=== PATIENT | female | born 1970 | race Caucasian/White ===

== ENCOUNTER → 2020-06-20 12:33 | Outpatient (BNVA) | payer SELFPAY | PROVIDERS: Family Provider Nurse Practitioner; PCP Nurse Practitioner; Visit Provider Nurse Practitioner Family | DX: I10 Essential (primary) hypertension (principal); N93.9 Abnormal uterine and vaginal bleeding, unspecified; R22.32 Localized swelling, mass and lump, left upper limb | CPT/HCPCS: 80053; 80061; 82607; 83001; 84439; 84443; 84481; 85025 ==

== ENCOUNTER → 2020-06-28 10:37 | Outpatient (BNVA) | payer SELFPAY | PROVIDERS: Family Provider Nurse Practitioner; PCP Nurse Practitioner; Visit Provider Nurse Practitioner Family | DX: E03.9 Hypothyroidism, unspecified (principal) | CPT/HCPCS: 86376 ==

== ENCOUNTER → 2020-07-17 09:49 | Outpatient (BNVA) | payer SELFPAY | PROVIDERS: PCP Nurse Practitioner Family; Visit Provider Obstetrics & Gynecology | DX: N91.2 Amenorrhea, unspecified (principal) | CPT/HCPCS: 82670; 83001; 84144 ==

== ENCOUNTER 2020-07-18 07:36 | Outpatient (CLI) | payer SELFPAY ==
--- NOTE | 2020-07-18 08:00 | US_ITS ---
WS: [id number] ULTRASOUND SOFT TISSUES medial LEFT upper arm. HISTORY: R22.32 - Localized swelling, mass and lump, left upper limb COMPARISON: None available. TECHNIQUE: 2-D and color Doppler imaging is submitted. Ultrasound is performed in the area of the swelling. There is no underlying mass identified by ultras ound. RIGHT and LEFT arms are imaged and very similar. No edema or evidence for muscle or tendon inju ry. US/US soft tissue/extremity [id number] IMPRESSION: Negative soft tissue ultrasound LEFT upper arm.
== END 2020-07-18 07:37 | disposition home or self-care (01) ==
PROVIDERS: PCP Nurse Practitioner Family; Visit Provider Nurse Practitioner Family
DX: R22.32 Localized swelling, mass and lump, left upper limb (principal)
CPT/HCPCS: 76882

== ENCOUNTER → 2020-07-27 13:06 | Outpatient (BNVA) | payer SELFPAY | PROVIDERS: PCP Nurse Practitioner Family; Visit Provider Obstetrics & Gynecology | DX: N91.2 Amenorrhea, unspecified (principal) | CPT/HCPCS: 76830 ==

== ENCOUNTER → 2020-07-31 15:47 | Outpatient (BNVA) | payer SELFPAY | PROVIDERS: PCP Nurse Practitioner Family; Visit Provider Obstetrics & Gynecology | DX: Z12.4 Encounter for screening for malignant neoplasm of cervix (principal) | CPT/HCPCS: 88175 ==

== ENCOUNTER 2020-08-03 08:06 | Outpatient (CLI) | payer SELFPAY ==
--- NOTE | 2020-08-03 08:30 | MM_ITS ---
WS: [id number] BILATERAL DIGITAL SCREENING MAMMOGRAPHY WITH CAD CLINICAL INFORMATION: Z12.31 - Encounter for screening mammogram for malignant neoplasm of breast HISTORY: Screening mammogram. Bilateral breast soreness COMPARISON: None. TECHNIQUE: Bilateral CC and MLO views. FINDINGS: Scattered fibroglandular densities bilaterally. Punctate and lucent centered calcifications. Intramam stuart lymph node outer right breast. No suspicious focal mass, asymmetry, calcifications, or it solutions architect ural distortion. No evidence of malignancy. MM/[place] [id number] IMPRESSION: BI-RADS: 2-Benign FOLLOW UP: 1 Year Follow-up Recommend return to annual screening mammography.
== END 2020-08-03 08:07 | disposition home or self-care (01) ==
LOC: RADSHAW 08:08
PROVIDERS: PCP Nurse Practitioner Family; Visit Provider Nurse Practitioner Family
DX: Z12.31 Encounter for screening mammogram for malignant neoplasm of breast (principal)
CPT/HCPCS: 77067

== ENCOUNTER → 2020-08-08 07:59 | Outpatient (BNVA) | payer SELFPAY | PROVIDERS: PCP Nurse Practitioner Family; Visit Provider Obstetrics & Gynecology | DX: Z01.818 Encounter for other preprocedural examination (principal); Z20.822 Contact with and (suspected) exposure to COVID-19 | CPT/HCPCS: 87635 ==

== ENCOUNTER 2020-08-10 05:42 | Day surgery (SDC) | payer SELFPAY ==
[2020-08-09 12:55] VITALS: BMI 37.5
[2020-08-10] VITALS (8 sets, daily range): BP systolic 122–155; BP diastolic 72–86; PULSE 42–79; RESP 13–18; TEMP 36.5–36.6; O2SAT 95–99
[2020-08-10] MEDS: sodium chloride 0.9% 1,000 ML 30 ML IV (06:15)
--- NOTE | 2020-08-10 06:55 | W.PM.OPSUD ---
Surgery/Procedure H&P Update DATE OF PROCEDURE: August 10, 2020 DATE H&P PERFORMED: 07/31/20 H&P UPDATE INFORMATION: I have reviewed H&P completed within last 30 days, I have examined patient prior to procedure, No changes to prior documentation and H&P is in [facility] EMR on date indicated PREOP DIAGNOSIS: Thickened endometrium-possible polyp PLANNED PROCEDURE: Operation Date: 08/10/20 07:00 Proposed Procedures p Hysteroscopy 52843 N93.9(Not Applicable) - Bhargav Rajan MD s Dilation And Curettage w/Myosure (D&C)(Not Applicable) - Bhargav Rajan MD
--- NOTE | 2020-08-10 06:56 | ANES.PREANE2 ---
Pre-Anesthetic Assessment Pre-Anesthetic Assessment: Height/Weight: Height 1.63 m Weight 99.337 kg Temp Pulse Resp BP Pulse Ox 98 F 52 L 18 155/77 97 08/10/20 05:55 08/10/20 05:55 08/10/20 05:55 08/10/20 05:55 08/10/20 05:55 Preop Diagnosis: Thickened endometrium-possible polyp Proposed Procedure: Operation Date: 08/10/20 07:00 Proposed Procedures p Hysteroscopy 48762 N93.9(Not Applicable) - Bhargav Rajan MD s Dilation And Curettage w/Myosure (D&C)(Not Applicable) - Bhargav Rajan MD Was Beta Jeff taken within 24 hours: N/A Was Clonidine taken within 24 hours: N/A Last intake: Intake Last Liquid Date 08/09/20 Last Solid Date 08/09/20 Social: Social History: Tobacco and No alcohol Exam: Pre-Anes Outpt Exam: alert, oriented x 3 and regular rate & rhythm Airway: Submandibular: WNL Cervical ROM: WNL MP: 2 Dentition: Chipped Additional comments: Poor dentition, missing several Pulmonary: Pulmonary: COPD CV/HEM: CV/HEM: Arrythmia and HTN GI: GI: GERD Metabolic: Metabolic: Morbid obesity and Thyroid Anesthetic Plan: ASA status: 3 Anesthesia: General Risk of > 500 ml blood loss (7ml/kg in children): No PFSH Anesthesia PFSH: Medical History Hypertension Diagnosed in her late 30s and is currently on medication managed by her primary care provider. She has seen Dr. Nicholas in the past and is being scheduled to see her again because of possible bradycardia No pertinent past medical history Denies diabetes, asthma, seizures, DVT/PE PCP: KARLOS Esquivel Surgical History History of delivery x2 ----->1996 History of cholecystectomy 1993--laparoscopic procedure Status post tubal ligation 1996 at time of second Family History Mother Heart disease Hypertension Hyperlipidemia Father Heart disease Hypertension Hyperlipidemia Sister Heart disease Thyroid condition Hypertension Hyperlipidemia Brother Heart disease Hypertension Hyperlipidemia Denies family history of Colon cancer Ovarian cancer Diabetes Breast cancer Uterine cancer Stroke Social History Smoking and tobacco status: current every day smoker cigarettes Packs smoked per day: 0.5 Years cigarettes smoked: 16 Alcohol intake: never Household members: spouse Housing: House Marital status: Data Anesthesia Cardiac Studies: No Data to Display
[2020-08-10] MEDS: silver nitrate applicator 1 EACH TOPICAL (07:54)
--- NOTE | 2020-08-10 08:00 | PM.OP ---
Operative Report Date of procedure: August 10, 2020 OPERATIVE REPORT Date of surgery: 08/10/2020 Date of dictation: 08/10/2020 Preoperative diagnosis: Thickened endometrium-postmenopausal Postoperative diagnosis/findings: Same, 6-8-week size anteverted uterus, grade 1-2 uterine prolapse, grade 1-2 cystocele, minimal rectocele. On hysteroscopy endocervical canal was normal, endometrial cavity showed 3 large endometrial polyp 1 arising from the fundus, a second from the posterior uterine wall and a third from the right lateral uterine wall all ranging in size between 0.5 to 1 cm. Fluid deficit was 150 mL Procedure done: Hysteroscopy, D&C, polypectomy with MyoSure Specimens removed/disposition of specimens: Endometrial polyp and endometrial curettings sent together to pathology Surgeon: Dr. Bhargav Medina Service Planner: barbara Anesthesia: Laryngeal mask anesthesia Estimated blood loss: Less than 25 ml Intravenous fluids: 800 mL of LR Urine output: 20 mL of clear urine via red rubber catheter at the start of procedure. Medications: As per anesthesia records Complications: None, patient was left to recover in a stable condition PROCEDURE: After consent was obtained patient was taken to the operating room where she is placed under laryngeal mask anesthesia without any difficulty. She was placed supine on the table in lithotomy position. Care was taken to ensure that her legs were well positioned to avoid pressure points. She was then prepped and draped in the usual sterile fashion. -Exam under anesthesia was done at this time which showed findings noted above. The weighted speculum and lateral vaginal wall retractors were placed in the vagina and the cervix was visualized. The cervix appeared normal. The cervix was dilated to a 16 Hickman dilator. This allowed placement of MYOSURE hysteroscope into the uterine cavity without any difficulty. Once the hysteroscope was placed in the uterine cavity, the endocervical canal was visualized and appeared normal .the uterine cavity was visualized and findings noted above--3 endometrial polyps. -The light MYOSURE device was placed and all 3 polyps were morcellated and removed. Once this was done the ostia were visualized and appeared normal. The hysteroscope was removed and sharp curettage was performed and endometrial curettings obtained was sent to pathology along with tissue obtained from the MyoSure procedure. No active bleeding was noted from the cervix. Tenaculum was removed and silver nitrate was used to obtain hemostasis. Good hemostasis was achieved. All instruments were removed from the vagina. Patient was cleaned well and anesthesia was reversed without any difficulty. She was taken to the recovery in a stable condition. FOLLOW UP: Follow-up in 2 weeks and 6 weeks with surgeon MEDICATION ON DISCHARGE: Colace 100 mg by mouth every 12 hours when necessary constipation, 30 tablets, no refills Ibuprofen 800 mg by mouth every 8 hours when necessary pain, 60 tablets, no refills. [place] 5/325 mg 1 tablet by mouth every 6 hours when necessary pain,10 tablets, no refills Continue other home medication DISPOSITION: Home in a stable condition This documentation was created by [employer] business administration instructor software (known for inherent business administration instructor error). Every effort was made to assure accuracy of business administration instructor. Any obvious errors or omissions should be clarified with the author of the document. Pre-op Diagnosis: Thickened endometrium-possible polyp
--- NOTE | 2020-08-10 15:01 | ANE.PACU2 ---
Inpatient post-anesthesia follow up: Airway intact: Yes Vital signs: Temperature 97.7 F Pulse Rate 42 Respiratory Rate 18 Blood Pressure 138/73 Pulse Oximetry 99 Oxygen Delivery Me thod Room Air Oxygen Flow Rate 2 Fraction of Inspir ed Oxygen Hydration adequate: Yes Nausea and vomiting: No Pain level: 1 Mental status: Baseline
== END 2020-08-10 09:30 | disposition home or self-care (01) ==
PROVIDERS: PCP Nurse Practitioner Family; Visit Provider Obstetrics & Gynecology
PROC: 0UDB8ZZ Extraction of Endometrium, Via Natural or Artificial Opening Endoscopic (ICD-10-PCS; CPT 58558; principal; 2020-08-10 07:00)
PROC: (CPT 58120; 2020-08-10 07:00)
DX: N81.2 Incomplete uterovaginal prolapse (principal); N81.6 Rectocele; R93.89 Abnormal findings on diagnostic imaging of other specified body structures; J44.9 Chronic obstructive pulmonary disease, unspecified; I10 Essential (primary) hypertension; K21.9 Gastro-esophageal reflux disease without esophagitis; E66.01 Morbid (severe) obesity due to excess calories; Z68.37 Body mass index [BMI] 37.0-37.9, adult; F17.210 Nicotine dependence, cigarettes, uncomplicated
CPT/HCPCS: 58558; 36415; 86850; 86900; 88305; J1170; J2405; J2704; J3010; J7030

== ENCOUNTER 2020-09-25 12:00 | Outpatient (CLI) | payer MEDICAID, SELFPAY | END 2020-09-25 12:01 | disposition home or self-care (01) | LOC: SLEEP 09-26 11:42 | PROVIDERS: PCP Nurse Practitioner Family; Visit Provider Internal Medicine Cardiovascular Disease | DX: G47.33 Obstructive sleep apnea (adult) (pediatric) (principal) | CPT/HCPCS: G0399 ==

== ENCOUNTER 2020-10-27 20:22 | Emergency (ER) | payer MEDICAID, SELFPAY ==
[2020-10-27 20:51] VITALS: BP 152/67; PULSE 56; RESP 18; TEMP 36.9; O2SAT 96; BMI 36.2
[2020-10-27 20:57] VITALS: PULSE 62
--- NOTE | 2020-10-27 21:11 | W.ED.EXTPRO ---
HPI - Extremity Problem General: Chief complaint: Extremity Problem,Nontraumatic Stated complaint: left arm and shoulder pain Time Seen by Provider: 10/27/20 20:58 History of Present Illness: HPI Narrative: Patient states left shoulder arm is been hurting for a couple 3 days. Hurts with movement. Pain radiates down to her fingertips arm is sore. Hurts left shoulder area. She has had this problem before. MD Complaint: extremity pain Onset (ago): day(s) Pain Consistency: intermittent Location: left and upper extremity Severity scale (1-10): 4 Quality: aching Radiation: distal Relieving factors: immobilization Exacerbating factors: range of motion Associated symptoms: Reports no associated symptoms; Deny chest pain, fever(s) or rash Review of Systems Const: Denies: fever(s), chills or body aches Eyes: Denies: change in vision or blurry vision ENMT: Denies: throat pain or nasal congestion Card: Denies: chest pain or dyspnea on exertion Resp: Denies: dyspnea, productive cough or non-productive cough GI: Denies: abdominal pain, nausea or vomiting Musc: Reports: extremity pain (Neck hurts some to. With range of motion) Skin/Breast: Denies: rash Neuro: Denies: headache(s) Psych: Denies: anxiety or depression Ryan/Lymph: Denies: easy bruising [facility] ED PFSH: Medical History (Updated 10/27/20 @ 21:06 by KARLOS Hanley) Hypertension Diagnosed in her late 30s and is currently on medication managed by her primary care provider. She has seen Dr. Nicholas in the past and is being scheduled to see her again because of possible bradycardia No pertinent past medical history Denies diabetes, asthma, seizures, DVT/PE PCP: KARLOS Esquivel Obstructive sleep apnea Surgical History (Updated 08/30/20 @ 06:35 by Bhargav Rajan MD) History of delivery x2 ----->1996 History of cholecystectomy 1993--laparoscopic procedure Status post hysteroscopy 08/10/2020---hysteroscopy[place] [facility] [place] At time of hysteroscopy 3 endometrial polyps were noted and removed-bilateral ostia visualized-no other pathology seen. Pathology showed benign endometrial polyps with fragments of myometrium, no atypia hyperplasia or malignancy identified Status post tubal ligation 1996 at time of second Family History Mother Heart disease Hypertension Hyperlipidemia Father Heart disease Hypertension Hyperlipidemia Sister Heart disease Thyroid condition Hypertension Hyperlipidemia Brother Heart disease Hypertension Hyperlipidemia Denies family history of Colon cancer Ovarian cancer Diabetes Breast cancer Uterine cancer Stroke Social History Smoking and tobacco status: current every day smoker cigarettes Packs smoked per day: 0.5 Years cigarettes smoked: 16 Alcohol intake: never Household members: spouse Housing: House Marital status: Physical Exam Const: COMMON NORMALS: no acute distress, average body habitus and patient oriented x3 HENMT: COMMON NORMALS: normocephalic HEAD & SCALP: normal to inspection and normocephalic FACE & SINUS: normal facial exam Eye: COMMON NORMALS: conjunctivae normal GENERAL EYE: appearance normal, both eyes and all related structures CONJUNCTIVA: Yes conjunctivae normal Neck/C-Spine: COMMON NORMALS: no JVD CERVICAL SPINE: Yes cervical ROM normal, Yes Paracervical muscle tenderness and Yes Trapezius muscle tenderness left Chest: COMMONS NORMALS: normal inspection of the chest Resp: COMMON NORMALS: normal respiratory effort and clear to auscultation bilaterally AUSCULTATION: clear to auscultation bilaterally Cardio: COMMON NORMALS: no JVD, regular rate and regular rhythm RATE: regular rate RHYTHM: regular rhythm GI: COMMON NORMALS: Normal to inspection, nondistended, normoactive bowel sounds present Extremity: COMMON NORMALS: full ROM NARRATIVE EXTREMITY EXAM: Tenderness to left upper extremity along the nerve root from the neck down to the finger. Has full range of motion good sensation good movement. Pulses intact. No swelling erythema noted. Neuro: COMMON NORMALS: patient oriented x3 Course Vital Signs: Vital signs: Vital Signs Temperature 98.4 F 10/27/20 20:51 Pulse Rate 62 10/27/20 20:57 Respiratory Rate 18 10/27/20 20:51 Blood Pressure 152/67 10/27/20 20:51 Pulse Oximetry 96 10/27/20 20:51 MDM - Extremity (Nontraumatic) MDM Narrative: Medical decision making narrative: Patient with range of motion of left shoulder has pain radiates from the neck down to shoulder down to the hand. Pain he has tenderness palpation along the nerve root. Thought to have may be pinched nerve in the neck steroid and pain medication injection given. Patient to follow-up with possible chiropractor are and primary care provider. Discharge Plan Discharge Patient Disposition: Home Clinical Impression: Arm pain, left Condition: Stable Prescriptions: New prednisone 20 mg tablet 20 mg PO DAILY Qty: 7 RF: 0 Arthritis Pain (diclofenac) 1 % gel 4 g topical QID Qty: 100 RF: 0 No Action lisinopril 20 mg tablet See Rx Instructions .ROUTE .COMPLEX Qty: 30 RF: 0 ibuprofen 800 mg tablet 800 mg PO Q8H Qty: 30 RF: 0 docusate sodium 100 mg Capsule 100 mg PO BID PRN (Reason: constipation) Qty: 30 RF: 0 Discharge Orders: Discharge ED (Routine); Ordered 10/27/20 Ordered By: Mann Paez Referrals: Maria Victoria Echavarria FNP [Primary Care Provider] - Discharge Diet: Usual diet Discharge Activity: Resume usual activity Activity Restrictions/Additional Instructions: Follow-up with medical provider as directed. Take medications as prescribed. Return to the ER or your medical provider if condition worsens. Please read and understand discharge instructions. If any questions ask please. Coding Level of Care Code ED Cashier Payments Received for Dinah Brewer Exam Comprehensive
== END 2020-10-27 21:18 | disposition home or self-care (01) ==
PROVIDERS: Emergency Provider Nurse Practitioner Family; PCP Nurse Practitioner Family
DX: M79.602 Pain in left arm (principal); I10 Essential (primary) hypertension; F17.210 Nicotine dependence, cigarettes, uncomplicated
CPT/HCPCS: 99281

== ENCOUNTER → 2020-11-01 15:00 | Outpatient (BNVA) | payer SELFPAY | PROVIDERS: PCP Nurse Practitioner Family; Visit Provider Nurse Practitioner Family | DX: I10 Essential (primary) hypertension (principal); M25.50 Pain in unspecified joint; D17.22 Benign lipomatous neoplasm of skin and subcutaneous tissue of left arm; G47.33 Obstructive sleep apnea (adult) (pediatric); E03.9 Hypothyroidism, unspecified | CPT/HCPCS: 80053; 80061; 82306; 82607; 84443; 84550; 85025; 85651; 86038; 86140; 86431 ==

== ENCOUNTER → 2020-11-09 10:54 | Outpatient (BNVA) | payer OTHER, SELFPAY | PROVIDERS: PCP Nurse Practitioner Family; Visit Provider Surgery | DX: D17.22 Benign lipomatous neoplasm of skin and subcutaneous tissue of left arm (principal); Z01.812 Encounter for preprocedural laboratory examination; Z20.822 Contact with and (suspected) exposure to COVID-19; Z11.52 Encounter for screening for COVID-19 | CPT/HCPCS: 87635 ==

== ENCOUNTER 2020-11-15 10:47 | Day surgery (SDC) | payer MEDICAID, SELFPAY ==
[2020-11-14 15:36] VITALS: BMI 36.2
--- NOTE | 2020-11-15 11:19 | W.PM.OPSUD ---
Surgery/Procedure H&P Update DATE OF PROCEDURE: November 15, 2020 DATE H&P PERFORMED: 11/07/20 H&P UPDATE INFORMATION: I have reviewed H&P completed within last 30 days, I have examined patient prior to procedure and No changes to prior documentation PREOP DIAGNOSIS: Thickened endometrium-possible polyp PLANNED PROCEDURE: Operation Date: 11/15/20 12:55 Proposed Procedures p Excision Mass left arm 47621 D17.22(Left) - Chacorta Urban MD
[2020-11-15 11:44] VITALS: BP 151/79; PULSE 54; RESP 17; TEMP 36.5; O2SAT 98
--- NOTE | 2020-11-15 12:27 | P.ANESASSM_ITS ---
Pre-Anesthetic Assessment Pre-Anesthetic Assessment: Height/Weight: Height 1.65 m Weight 98.883 kg Temp Pulse Resp BP Pulse Ox 97.7 F 54 L 17 151/79 98 11/15/20 11:44 11/15/20 11:44 11/15/20 11:44 11/15/20 11:44 11/15/20 11:44 Preop Diagnosis: Left arm mass Proposed Procedure: Operation Date: 11/15/20 12:55 Proposed Procedures p Excision Mass left arm 81008 D17.22(Left) - Chacorta Urban MD Familial anesthetic complications: None Was Beta Jeff taken within 24 hours: N/A Was Clonidine taken within 24 hours: N/A Last intake: Intake Last Liquid Date 11/14/20 Last Liquid Time 20:30 Last Solid Date 11/14/20 Last Solid Time 20:00 Social: Social History: Tobacco and No alcohol Exam: Pre-Anes Outpt Exam: alert, oriented x 3, clear to auscultation bilaterally and regular rate & rhythm Airway: Cervical ROM: WNL MP: 3 Dentition: Chipped and Other ( bad teeth ) Pulmonary: Pulmonary: Sleep apnea CV/HEM: CV/HEM: Arrythmia (bradycardia) and HTN GI: GI: GERD Metabolic: Metabolic: Morbid obesity and Thyroid Anesthetic Plan: ASA status: 3 Anesthesia: MAC Risk of > 500 ml blood loss (7ml/kg in children): No PFSH Anesthesia PFSH: Medical History (Updated 11/07/20 @ 15:12 by Chacorta Urban MD) Hypertension Obstructive sleep apnea Surgical History History of delivery x2 ----->1996 History of cholecystectomy 1993--laparoscopic procedure Status post hysteroscopy 08/10/2020---hysteroscopy, D&C polypectomy by Dr. Medina at [facility] [place]. At time of hysteroscopy 3 endometrial polyps were noted and removed-bilateral ostia visualized-no other pathology seen. Pathology showed benign endometrial polyps with fragments of myometrium, no atypia hyperplasia or malignancy identified Status post tubal ligation 1996 at time of second Family History Mother Heart disease Hypertension Hyperlipidemia Father Heart disease Hypertension Hyperlipidemia Sister Heart disease Thyroid condition Hypertension Hyperlipidemia Brother Heart disease Hypertension Hyperlipidemia Denies family history of Colon cancer Ovarian cancer Diabetes Breast cancer Uterine cancer Stroke Social History Second hand smoke exposure: Yes Alcohol intake: never Caregiver/support person: Yes Lives independently: Yes Household members: spouse Housing: House Marital status: service: No Current occupational status: disabled History of recent travel: No Current gender identity: Female Special jonathan needs: No Agree to transfusion: Yes Data Anesthesia Cardiac Studies: No Data to Display
[2020-11-15] MEDS: sodium chloride 0.9% 1,000 ML 30 ML IV (12:42)
[2020-11-15] MEDS: lidocaine 1% INJ 20 mL INJECTION (13:46)
--- NOTE | 2020-11-15 14:07 | PM.OP ---
Operative Report Date of procedure: November 15, 2020 Pre-op Diagnosis: 5 x 3 cm subcutaneous mass left arm Post-op diagnosis: same Procedure Done: Excision of subcutaneous mass left arm Specimens removed/disposition: Mass left arm Surgeon: Chacorta Urban Anesthesia: MAC Condition: stable Disposition: PACU Procedure: The patient was taken to the operating room and left arm was prepped and draped in sterile manner after IV antibiotic had been administered. 1% lidocaine with 0.5% Marcaine was infiltrated around the palpable subcutaneous mass. Use 15 blade a 4 cm longitudinal incision was made, subcutaneous was divided using electrocautery and the lipoma was dissected free from the surrounding subcutaneous tissue and underlying muscular fascia. Wound was irrigated with saline, hemostasis ensured and subcutaneous tissues were approximated using interrupted 3-0 Vicryl suture. The skin was closed using running subcuticular 4-0 Monocryl suture and Dermabond. The patient was transferred to recovery room in stable condition.
[2020-11-15 14:18] VITALS: BP 158/94; PULSE 88; RESP 17; TEMP 36.3; O2SAT 98
[2020-11-15 14:25] VITALS: BP 153/89; PULSE 79; RESP 16; TEMP 36.5; O2SAT 98
[2020-11-15 14:30] VITALS: BP 161/87; PULSE 77; RESP 18; O2SAT 96
[2020-11-15 14:55] VITALS: BP 165/104; PULSE 64; RESP 18; O2SAT 99
[2020-11-15] MEDS: HYDROcodone-acetaminophen 5-325 mg Tablet 1 TAB PO (14:55)
--- NOTE | 2020-11-15 15:01 | ANE.PACU2 ---
Inpatient post-anesthesia follow up: Airway intact: Yes Vital signs: Temperature 97.7 F Pulse Rate 77 Respiratory Rate 18 Blood Pressure 161/87 Pulse Oximetry 96 Oxygen Delivery Me thod Room Air Oxygen Flow Rate Fraction of Inspir ed Oxygen Hydration adequate: Yes Nausea and vomiting: No Pain level: 2 Mental status: Baseline
== END 2020-11-15 15:04 | disposition home or self-care (01) ==
PROVIDERS: PCP Nurse Practitioner Family; Visit Provider Surgery
PROC: (CPT 11406; principal; 2020-11-15 12:45)
DX: D17.22 Benign lipomatous neoplasm of skin and subcutaneous tissue of left arm (principal); G47.30 Sleep apnea, unspecified; I10 Essential (primary) hypertension; K21.9 Gastro-esophageal reflux disease without esophagitis; E66.01 Morbid (severe) obesity due to excess calories; Z68.36 Body mass index [BMI] 36.0-36.9, adult; G47.33 Obstructive sleep apnea (adult) (pediatric); Z79.52 Long term (current) use of systemic steroids; Z82.49 Family history of ischemic heart disease and other diseases of the circulatory system
CPT/HCPCS: 11406; 12032; 88304; J0690; J2250; J2704; J3010; J3490; J7030

== ENCOUNTER → 2021-01-24 15:15 | Outpatient (BNVA) | payer SELFPAY | PROVIDERS: PCP Nurse Practitioner Family; Visit Provider Nurse Practitioner Family | DX: M25.50 Pain in unspecified joint (principal) | CPT/HCPCS: 80053; 84550; 85025 ==

== ENCOUNTER → 2021-07-10 15:38 | Outpatient (BNVA) | payer MEDICAID, SELFPAY | PROVIDERS: PCP Nurse Practitioner Family; Visit Provider Nurse Practitioner Family | DX: M25.50 Pain in unspecified joint (principal); I10 Essential (primary) hypertension; M10.9 Gout, unspecified; Z12.11 Encounter for screening for malignant neoplasm of colon; Z12.39 Encounter for other screening for malignant neoplasm of breast; M25.562 Pain in left knee; M54.41 Lumbago with sciatica, right side; G89.29 Other chronic pain | CPT/HCPCS: 80053; 80061; 82306; 82607; 83735; 84439; 84443; 84550; 85025; 85651; 86038; 86140; 86200; 86431 ==

== ENCOUNTER 2021-07-12 14:07 | Outpatient (CLI) | payer MEDICAID, SELFPAY ==
--- NOTE | 2021-07-12 14:19 | XRR_ITS ---
PROCEDURE INFORMATION: Exam: XR Left Knee Exam date and time: 07/12/2021 2:24 PM Age: 51 years old Clinical indication: Patient HX: History--chronic lt knee pain x several months getting worse (6) posterior and lateral side of left knee; Additional info: M25.562 - pain in left knee TECHNIQUE: Imaging protocol: XR Left knee. Views: 3 views. COMPARISON: US soft tissue/extremity [id number] 07/18/2020 7:47 AM FINDINGS: Bones/joints: Mild to moderate tricompartmental osteoarthritis of the knee. Soft tissues: Normal. XR/XR knee LT 3V* [id number] IMPRESSION: Mild to moderate tricompartmental osteoarthritis of the knee.
--- NOTE | 2021-07-12 14:19 | XRR_ITS ---
PROCEDURE INFORMATION: Exam: XR Lumbosacral Spine Exam date and time: 07/12/2021 2:24 PM Age: 51 years old Clinical indication: Lumbago with sciatica; Right; Patient HX: Low back pain(4) x several years consistently getting worse has had mri done previously in 2009; Additional info: M54.41 - lumbago with sciatica, right side TECHNIQUE: Imaging protocol: XR of the lumbosacral spine. Views: 2 or 3 views. COMPARISON: No relevant prior studies available. FINDINGS: Bones/joints: Grade 1 anterolisthesis of L4 relative to L5 of 4.5 mm with moderate to severe disc space narrowing. Multilevel productive degenerative endplate changes throughout the spine. Mild lumbar spine levocurvature. Soft tissues: Unremarkable. Vasculature: Scattered vascular calcifications. XR/XR lumbar spine 2-3V* [id number] IMPRESSION: 1. Grade 1 anterolisthesis of L4 relative to L5 of 4.5 mm with moderate to severe disc space narrowing. 2. Multilevel productive degenerative endplate changes throughout the spine. 3. Mild lumbar spine levocurvature. 4. Scattered vascular calcifications.
== END 2021-07-12 14:08 | disposition home or self-care (01) ==
PROVIDERS: PCP Nurse Practitioner Family; Visit Provider Nurse Practitioner Family
DX: M54.41 Lumbago with sciatica, right side (principal); G89.29 Other chronic pain; M25.562 Pain in left knee; M43.16 Spondylolisthesis, lumbar region; M41.86 Other forms of scoliosis, lumbar region; M17.12 Unilateral primary osteoarthritis, left knee
CPT/HCPCS: 72100; 73562

== ENCOUNTER → 2021-07-26 10:08 | Outpatient (BNVA) | payer MEDICAID, SELFPAY | PROVIDERS: PCP Nurse Practitioner Family; Referring Provider Nurse Practitioner Family; Visit Provider Surgery | DX: Z12.11 Encounter for screening for malignant neoplasm of colon (principal) | CPT/HCPCS: 99024 ==

== ENCOUNTER 2021-08-29 07:42 | Day surgery (SDC) | payer MEDICAID, SELFPAY ==
[2021-08-28 08:50] VITALS: BMI 38.2
[2021-08-29 08:06] VITALS: BP 149/96; PULSE 82; RESP 18; TEMP 36.2; O2SAT 92
[2021-08-29] MEDS: sodium chloride 0.9% 1,000 ML 30 ML IV (08:11)
--- NOTE | 2021-08-29 08:40 | P.ANESASSM_ITS ---
Pre-Anesthetic Assessment Height/Weight: Height 1.65 m Weight 104.326 kg Temp Pulse Resp BP Pulse Ox 97.2 F L 82 18 149/96 92 08/29/21 08:06 08/29/21 08:06 08/29/21 08:06 08/29/21 08:06 08/29/21 08:06 Preop Diagnosis: diagnostic Operation Date: 08/29/21 09:15 Proposed Procedures p Colonoscopy 05711/z12.11(Not Applicable) - Chacorta Urban MD Familial anesthetic complications: none Was Beta Jeff taken within 24 hours: N/A Was Clonidine taken within 24 hours: N/A Last intake: Intake Last Liquid Date 08/28/21 Last Liquid Time 21:00 Last Solid Date 08/27/21 Social Tobacco and No alcohol Exam alert, oriented x 3, clear to auscultation bilaterally and regular rate & rhythm Airway Submandibular: within normal limits Mallampati: Class II Dentition: false Pulmonary Sleep Apnea (Does not use CPAP ) CV/HEM Hypertension Hx of bradycardia None reported GI Gastroesophageal Reflux Disease Metabolic Thyroid Disease [facility] [place] Osteoarthritis/DJD Breast cancer hx Neuropsych None reported Anesthetic Plan ASA status: 3 (51 year old obese smoker with ROMULO untreated, hx of hypothyroidism, GERD, gout ) Anesthesia: Anesthesia Evaluation, General and MAC Other: I discussed with the patient risks, goals, and benefits of MAC and general anesthesia. We discussed spectrum of MAC anesthesia including conversion to general as well as possibility of recall of intraoperative stimuli including discomfort/pain. Patient agrees to proceed with MAC. Risk of > 500 ml blood loss (7ml/kg in children): No Medications/Allergies Home Medications Medication Instructions Recorded Confirmed Last Taken Type APAP at 6-14 cm #1 ea 03/21/21 07/10/21 Unknown Rx diclofenac sodium 75 mg 75 mg PO BID PRN #180 tab 07/10/21 08/29/21 Unknown Rx tablet,delayed release ergocalciferol (vitamin D2) 1,250 1,250 mcg PO .weekly #4 cap 07/12/21 08/29/21 08/24/21 Rx mcg (50,000 unit) capsule acetaminophen 650 mg tablet 650 mg PO Q4H PRN 08/28/21 08/29/21 08/27/21 History allopurinol 100 mg tablet 100 mg PO DAILY 08/28/21 08/29/21 08/27/21 History lisinopril 20 mg tablet 20 mg PO DAILY 08/28/21 08/29/21 08/28/21 History Allergies Allergy/AdvReac Type Severity Reaction Status Date / Time No Known Allergies Allergy Verified 08/29/21 08:03 Current Medications Generic Name Dose Route Start Last Admin Trade Name Thadq PRN Reason Stop Dose Admin Sodium Chloride 1,000 mls @ 30 mls/hr 08/29/21 08:15 08/29/21 08:11 Sodium Chloride 0.9% IV 08/30/21 08:14 30 mls/hr .Q24H PERI Administration PFSH Anesthesia Medical History Hypertension Obstructive sleep apnea Surgical History History of delivery x2 ----->1996 History of cholecystectomy 1993--laparoscopic procedure S/P excision of lipoma (11/15/20) Left arm Status post hysteroscopy 08/10/2020---hy[place]oscopy[place] [facility] [place] [facility] [place] At time of hysteroscopy 3 endometrial polyps were noted and removed-bilateral ostia visualized-no other pathology seen. Pathology showed benign endometrial polyps with fragments of myometrium, no atypia hyperplasia or malignancy identified Status post tubal ligation 1996 at time of second Family History Mother Heart disease Hypertension Hyperlipidemia Father Heart disease Hypertension Hyperlipidemia Sister Heart disease Thyroid condition Hypertension Hyperlipidemia Brother Heart disease Hypertension Hyperlipidemia Denies family history of Colon cancer Ovarian cancer Diabetes Breast cancer Uterine cancer Stroke Social History Smoking and tobacco status: current every day smoker cigarettes Packs smoked per day: 0.5 Years cigarettes smoked: 16 Second hand smoke exposure: Yes Alcohol intake: never Caregiver/support person: Yes Lives independently: Yes Household members: spouse Housing: House Marital status: service: No Current occupational status: disabled History of recent travel: No Current gender identity: Female Special jonathan needs: No Agree to transfusion: Yes Data Anesthesia Cardiac Studies: No Data to Display
--- NOTE | 2021-08-29 09:08 | W.PM.OPSFHP ---
Same Day Surgery H&P Indication for Procedure/HPI DATE OF PROCEDURE: August 29, 2021 CHIEF COMPLAINT/INDICATIONFOR SURGICAL PROCEDURE: colonoscopy PREOP DIAGNOSIS: diagnostic PLANNED PROCEDURE: Operation Date: 08/29/21 09:15 Proposed Procedures p Colonoscopy 80313/z12.11(Not Applicable) - Chacorta Urban MD Medications/Allergies* Home Medications Medication Instructions Recorded Confirmed Type acetaminophen 650 mg tablet 650 mg PO Q4H PRN 08/28/21 08/29/21 History allopurinol 100 mg tablet 100 mg PO DAILY 08/28/21 08/29/21 History lisinopril 20 mg tablet 20 mg PO DAILY 08/28/21 08/29/21 History Allergies/Adverse Reactions Allergy/AdvReac Type Severity Reaction Status Date / Time No Known Allergies Allergy Verified 08/29/21 08:03 Current Medications: Generic Name Dose Route Start Last Admin Trade Name Freq PRN Reason Stop Dose Admin Sodium Chloride 1,000 mls @ 30 mls/hr 08/29/21 08:15 08/29/21 08:11 Sodium Chloride 0.9% IV 08/30/21 08:14 30 mls/hr .Q24H PERI Administration Pertinent History/Comorbid Conditions* Medical History (Updated 07/10/21 @ 14:29 by KARLOS Esquivel) Hypertension Obstructive sleep apnea Surgical History (Updated 11/28/20 @ 10:17 by Chacorta Urban MD) History of delivery x2 ----->1996 History of cholecystectomy 1993--laparoscopic procedure S/P excision of lipoma (11/15/20) Left arm Status post hysteroscopy 08/10/2020---hysteroscopy, D&C polypectomy by Dr. Medina at [facility] [place]. At time of hysteroscopy 3 endometrial polyps were noted and removed-bilateral ostia visualized-no other pathology seen. Pathology showed benign endometrial polyps with fragments of myometrium, no atypia hyperplasia or malignancy identified Status post tubal ligation 1996 at time of second Family History (Updated 07/17/20 @ 08:58 by Danielle Hobbs RN) Heart disease Mother Father Sister Brother Hyperlipidemia Mother Father Sister Brother Hypertension Mother Father Sister Brother Thyroid condition Sister Denies family history of Colon cancer Ovarian cancer Diabetes Breast cancer Uterine cancer Stroke Social History Smoking and tobacco status: current every day smoker cigarettes Packs smoked per day: 0.5 Years cigarettes smoked: 16 Second hand smoke exposure: Yes Alcohol intake: never Caregiver/support person: Yes Lives independently: Yes Household members: spouse Housing: House Marital status: service: No Current occupational status: disabled History of recent travel: No Current gender identity: Female Special jonathan needs: No Agree to transfusion: Yes Pertinent Exam Findings alert, oriented x 3 and regular rate & rhythm Recommendations Surgery/Procedure today Coding Level of Care Code 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
[2021-08-29 10:26] VITALS: BP 109/67; PULSE 64; RESP 16; TEMP 36.1; O2SAT 97
[2021-08-29 10:40] VITALS: BP 137/87; PULSE 65; RESP 18; O2SAT 97
--- NOTE | 2021-08-29 15:05 | ANE.PACU2 ---
Inpatient post-anesthesia follow up: Airway intact: Yes Vital signs: Temperature 97 F Pulse Rate 65 Respiratory Rate 18 Blood Pressure 137/87 Pulse Oximetry 97 Oxygen Delivery Me thod Room Air Oxygen Flow Rate 3 Fraction of Inspir ed Oxygen Hydration adequate: Yes Nausea and vomiting: No Pain level: 1 Mental status: Baseline
== END 2021-08-29 11:00 | disposition home or self-care (01) ==
PROVIDERS: PCP Nurse Practitioner Family; Visit Provider Surgery
PROC: 0DJD8ZZ Inspection of Lower Intestinal Tract, Via Natural or Artificial Opening Endoscopic (ICD-10-PCS; CPT 45378; principal; 2021-08-29 09:15)
DX: Z12.11 Encounter for screening for malignant neoplasm of colon (principal); D12.2 Benign neoplasm of ascending colon; D12.5 Benign neoplasm of sigmoid colon; G47.30 Sleep apnea, unspecified; I10 Essential (primary) hypertension; K21.9 Gastro-esophageal reflux disease without esophagitis; M19.90 Unspecified osteoarthritis, unspecified site; Z85.3 Personal history of malignant neoplasm of breast; E66.9 Obesity, unspecified; Z68.38 Body mass index [BMI] 38.0-38.9, adult; F17.210 Nicotine dependence, cigarettes, uncomplicated; G47.33 Obstructive sleep apnea (adult) (pediatric); E30.9 Disorder of puberty, unspecified
CPT/HCPCS: 45385; 88305; J2704; J7030

== ENCOUNTER 2021-08-30 07:39 | Outpatient (CLI) | payer MEDICAID, SELFPAY ==
--- NOTE | 2021-08-30 08:00 | MR_ITS ---
WS: [id number] MRI LUMBAR SPINE NONCONTRAST HISTORY: M54.9 - Dorsalgia, unspecified, low back pain since 2010. Numbness RIGHT leg. COMPARISON: 05/24/2009 TECHNIQUE: Sagittal and axial multisequence imaging is submitted. Progressive anterolisthesis of L4 since 2009. L4 anterolisthesis by 6.6 mm. Bilateral pars defects ar e likely at L4. There is a very small amount of marrow edema in the L4 vertebral body. Mild disc space narrowing and desiccation at L4-5. Conus terminates normally at L1. T12-L1: Mild disc bulge. No stenosis. L1-L2: Normal. L2-L3: Normal. L3-L4: Minimal disc bulging. No focal protrusion. Mild ligamentum flavum hypertrophy. No stenosis. L4-L5: Slight unroofing of the disc. Advanced degenerative changes at the facet joints. Very mild lig amentum flavum hypertrophy. Facet arthritis encroaching centrally with narrowing of the thecal sac. T here is also a central disc protrusion. Bilateral encroachment into the subarticular recesses. Modera te to severe RIGHT foraminal stenosis. There is disc contacting and slightly displacing the exiting R IGHT L4 nerve root. There is also mild contact bilaterally but greatest on the RIGHT involving the tr aversing L5 nerve roots. Mild LEFT foraminal stenosis. L5-S1: Mild disc bulge. No stenosis. MR/MR lumbar spine wo con* [id number] IMPRESSION: 1. Progression of grade 1, L4 anterolisthesis since 2009. Anterolisthesis now 6.6 mm and bilateral pars defects are likely. 2. Advanced facet joint arthritis at L4-5 encroaching towards the thecal sac r esulting in central canal stenosis with bilateral subarticular recess and linda inal stenosis. Most severe stenosis involving the RIGHT foramen where there is disc contacting the RIGHT L4 and L5 nerve roots.
== END 2021-08-30 07:40 | disposition home or self-care (01) ==
LOC: RAD 07:41
PROVIDERS: PCP Nurse Practitioner Family; Visit Provider Nurse Practitioner Family
DX: G89.29 Other chronic pain (principal); M54.9 Dorsalgia, unspecified; M47.816 Spondylosis without myelopathy or radiculopathy, lumbar region; M48.061 Spinal stenosis, lumbar region without neurogenic claudication
CPT/HCPCS: 72148

== ENCOUNTER 2021-09-11 09:13 | Outpatient (CLI) | payer MEDICAID, SELFPAY ==
--- NOTE | 2021-09-11 09:37 | MM_ITS ---
WS: [id number] BILATERAL SCREENING DIGITAL BREAST TOMOSYNTHESIS MAMMOGRAM WITH CAD HISTORY: Z12.39 - Encounter for other screening for malignant neoplasm... COMPARISON: 08/03/2020 Bilateral CC and MLO views with tomosynthesis and synthetic mammography submitted. Computer aided det ection analyzed. Breast composition: There are scattered areas of fibroglandular density. No suspicious masses, microc alcifications or architectural distortion. Benign lymph node upper outer quadrant RIGHT breast. Benig n calcification anterior LEFT breast. MM/[place] [id number] IMPRESSION: BI-RADS: 2-Benign FOLLOW UP: 1 Year Follow-up
[2021-09-13 12:17] LABS: HLA-B27 NEGATIVE (NEGATIVE)
== END 2021-09-11 09:14 | disposition home or self-care (01) ==
PROVIDERS: Internal Medicine Rheumatology; PCP Nurse Practitioner Family; Visit Provider Nurse Practitioner Family
DX: Z12.39 Encounter for other screening for malignant neoplasm of breast (principal); M25.50 Pain in unspecified joint; M47.816 Spondylosis without myelopathy or radiculopathy, lumbar region; Z79.899 Other long term (current) drug therapy
CPT/HCPCS: 72202; 77063; 77067; 86812; 99204; 99205

== ENCOUNTER → 2021-09-12 09:10 | Outpatient (BNVA) | payer MEDICAID, SELFPAY | PROVIDERS: PCP Nurse Practitioner Family; Visit Provider Surgery | DX: K63.5 Polyp of colon (principal) | CPT/HCPCS: 99212 ==

== ENCOUNTER → 2021-09-25 10:51 | Outpatient (BNVA) | payer MEDICAID, SELFPAY | PROVIDERS: PCP Nurse Practitioner Family; Referring Provider Internal Medicine Rheumatology; Visit Provider Orthopaedic Surgery | DX: M54.41 Lumbago with sciatica, right side (principal); M43.16 Spondylolisthesis, lumbar region | CPT/HCPCS: 72120; 99204 ==

== ENCOUNTER 2022-01-16 17:23 | Inpatient (IN) | payer MEDICAID, SELFPAY ==
[2022-01-10 09:30] VITALS: BMI 38.2
--- NOTE | 2022-01-10 09:47 | P.ANESASSM_ITS ---
Pre-Anesthetic Assessment Height/Weight: Height 1.65 m Weight 104.326 kg Preop Diagnosis: diagnostic Operation Date: 01/16/22 07:00 Proposed Procedures p Posterior Lumbar Interbody Fusion l4/5 [id number]/m43.16/m47.27(Not Applicable) - Roberto Carlos Castellanos DO s Lumbar Spine Decompression(Not Applicable) - Roberto Carlos Castellanos, Familial anesthetic complications: None Social Tobacco and No alcohol Exam alert, oriented x 3, clear to auscultation bilaterally and regular rate & rhythm Airway Mallampati: Class III Dentition: false Pulmonary Sleep Apnea CV/HEM Arrythmia (bradycardia) and Hypertension GI Gastroesophageal Reflux Disease Metabolic Morbid Obesity and Thyroid Disease Musc/skel Lower Back Pain and Osteoarthritis/DJD Neuropsych Transient Ischemic Attack (several years ago) Anesthetic Plan ASA status: 3 Anesthesia: General Risk of > 500 ml blood loss (7ml/kg in children): No Medications/Allergies Home Medications Medication Instructions Recorded Confirmed Last Taken Type acetaminophen 650 mg tablet 650 mg PO Q4H PRN Pain 08/28/21 01/10/22 08/27/21 History lisinopril 20 mg tablet 20 mg PO DAILY 08/28/21 01/10/22 08/28/21 History Allergies Allergy/AdvReac Type Severity Reaction Status Date / Time No Known Allergies Allergy Verified 12/11/21 11:21 PFS Anesthesia Medical History Colon polyps Degenerative joint disease (DJD) of lumbar spine High risk medication use Hypertension Inflammatory arthritis Obstructive sleep apnea Surgical History History of delivery x2 ----->1996 History of cholecystectomy 1993--laparoscopic procedure S/P excision of lipoma (11/15/20) Left arm Status post colonoscopy (08/29/21) Status post hysteroscopy 08/10/2020---hysteroscopy[place] [facility] [place] At time of hysteroscopy 3 endometrial polyps were noted and removed-bilateral ostia visualized-no other pathology seen. Pathology showed benign endometrial polyps with fragments of myometrium, no atypia hyperplasia or malignancy identified Status post tubal ligation 1996 at time of second Family History Mother Heart disease Hypertension Hyperlipidemia Father Heart disease Hypertension Hyperlipidemia Sister Heart disease Thyroid condition Hypertension Hyperlipidemia Brother Heart disease Hypertension Hyperlipidemia Other Lupus Rheumatoid arthritis Denies family history of Colon cancer Ovarian cancer Diabetes Breast cancer Lung disease Uterine cancer Stroke Social History Smoking and tobacco status: current every day smoker cigarettes Packs smoked per day: 0.5 Years cigarettes smoked: 16 Second hand smoke exposure: Yes Alcohol intake: never Caregiver/support person: Yes Lives independently: Yes Household members: spouse Housing: House Marital status: service: No Current occupational status: disabled History of recent travel: No Current gender identity: Female Special jonathan needs: No Agree to transfusion: Yes Data Anesthesia Cardiac Studies: No Data to Display
[2022-01-10 09:54] LABS: Basophils % 0.6 %; Eosinophils # 0.1 10^3/uL (0.0-0.8); Eosinophils % 1.9 %; Hematocrit 45.4 % (37.0-47.0); Mean Corpuscular Hemoglobin 30.9 pg (28.0-34.0); Mean Corpuscular Volume 93.6 fl (81-99); Mean Platelet Volume 10.5 fL (7.4-10.4); Monocytes # 0.5 10^3/uL (0.2-0.9); Monocytes % 7.8 %; Neutrophils # 3.72 10^3/uL (1.8-7.7); Neutrophils % 58.2 %; Nucleated Red Blood Cells % 0 %; Platelet Count 175 10^3/cmm (130-400); Red Blood Count 4.85 10^6/uL (4.1-5.3); Red Cell Distribution Width 12.3 % (12.1-15.1); White Blood Count 6.4 10^3/uL (4.0-10.0)
[2022-01-10 10:24] LABS: Blood Urea Nitrogen 8 mg/dL (6-20); Calcium 9.5 mg/dL (8.5-10.5); Carbon Dioxide 23 mmol/L (22-29); Chloride 104 mmol/L (98-107); Creatinine Clr Calc Pharmacy 134.4601; Glomerular Filtration Rate 105.8 mL/min (90-130); Glucose 126 mg/dL (65-115); Osmolality Calculated 286 mOsm/kg (285-295); Sodium 138 mmol/L (136-145)
[2022-01-16] VITALS (19 sets, daily range): BP systolic 110–152; BP diastolic 65–101; PULSE 18–88; RESP 10–24; TEMP 36.5–36.8; O2SAT 97–100; BMI 40.4
--- NOTE | 2022-01-16 | XR_ITS ---
WS: [id number] Lumbar spine, C-arm fluoroscopy, 01/16/2022 Clinical Data: L4-5 instrumented fusion/ or pic Comparison: Lumbar spine, 09/25/2021 Findings: Dr. aCstellanos performed a posterior lumbar fusion at L4-L5 with insertion of an artificial disc. XR/XR lumbar spine 2-3V* [id number] Impression: Posterior lumbar fusion at L4-L5.
--- NOTE | 2022-01-16 | SCC_ITS ---
Procedure done: 1.? L4/5 Interbody fusion with posterolateral fusion 2.? Instrumentation L4/5 3. Cage at L4/5 4. Laminectomy L4 5. use of autograft from same incision 6. allograft 7. Bone marrow aspirate from right iliac crest 8. use of computer navigation / stereotactic spine 1 seconds of fluoroscopic guidance, for a cumulative dose of 69 mGy, was provided to Dr. Castellanos by the radiology department. C-arm images of the lumbar spine were saved for the patient's permanent record. KENROY
[2022-01-16] MEDS: sodium chloride 0.9% 1,000 ML 30 ML IV (11:07)
--- NOTE | 2022-01-16 12:43 | PM.HP ---
Providers/Chief Complaint Primary Care Provider: KARLOS Esquivel Chief Complaint: PLIF W/DECOMPRESSION [id number] History of Present Illness Danielle Badillo is a 52 year old female he has been dealing with this back and right leg pain since 2009.? She has tried a number of different conservative treatments with home stretching exercises walking her quality of life is been progressively getting worse with her inability to stay active due to the pain that she experiences.? She reports equal low back and right lower extremity pain.? She has been gaining weight because of her inactivity she has become more emotionally stressed because of her weight gain and inactivity.? She is notices changes with bowel bladder habits.? When she walks any distance she feels her right leg seem to give out causing her to fall.? Patient rates pain at 6/10 in clinic today.? Rest gives her the best relief.? But the more inactive she is becoming she is gaining more more weight.? Patient would like to discuss surgical options in clinic today. Review of Systems General: Reports: 10 or more systems reviewed and unremarkable except in HPI and below Const: Denies: fever(s) or chills Eyes: Denies: change in vision ENMT: Denies: odynophagia Card: Denies: chest pain Resp: Denies: dyspnea GI: Denies: nausea or vomiting : Reports: urinary urgency; Denies: dysuria Musc: Reports: back pain and extremity pain Skin/Breast: Denies: rash Neuro: Reports: weakness in extremities Psych: Denies: anxiety Endo: Reports: polyuria; Denies: flushing Ryan/Lymph: Denies: easy bruising All/Imm: Denies: urticaria Medications/Allergies Home Medications Medication Instructions Recorded Confirmed Last Taken Type acetaminophen 650 mg tablet 650 mg PO Q4H PRN Pain 08/28/21 01/16/22 01/14/22 History lisinopril 20 mg tablet 20 mg PO DAILY 08/28/21 01/16/22 01/15/22 History Inraoperative Neuromonitoring #1 ea 01/14/22 Unknown Rx Allergies Allergy/AdvReac Type Severity Reaction Status Date / Time No Known Allergies Allergy Verified 01/16/22 10:47 PFSH Acute PFSH: Medical History Colon polyps Degenerative joint disease (DJD) of lumbar spine High risk medication use Hypertension Inflammatory arthritis Obstructive sleep apnea Surgical History History of delivery x2 ----->1996 History of cholecystectomy 1993--laparoscopic procedure S/P excision of lipoma (11/15/20) Left arm Status post colonoscopy (08/29/21) Status post hysteroscopy 08/10/2020---hysteroscopy, D&C polypectomy by Dr. Medina at [facility] [place]. At time of hysteroscopy 3 endometrial polyps were noted and removed-bilateral ostia visualized-no other pathology seen. Pathology showed benign endometrial polyps with fragments of myometrium, no atypia hyperplasia or malignancy identified Status post tubal ligation 1996 at time of second Family History Mother Heart disease Hypertension Hyperlipidemia Father Heart disease Hypertension Hyperlipidemia Sister Heart disease Thyroid condition Hypertension Hyperlipidemia Brother Heart disease Hypertension Hyperlipidemia Other Lupus Rheumatoid arthritis Denies family history of Colon cancer Ovarian cancer Diabetes Breast cancer Lung disease Uterine cancer Stroke Social History Smoking and tobacco status: current every day smoker cigarettes Packs smoked per day: 0.5 Years cigarettes smoked: 16 Second hand smoke exposure: Yes Alcohol intake: never Caregiver/support person: Yes Lives independently: Yes Household members: spouse Housing: House Marital status: service: No Current occupational status: disabled History of recent travel: No Current gender identity: Female Special jonathan needs: No Agree to transfusion: Yes Vitals/I&O/Wt Last Vital Signs Temp 97.7 F 01/16/22 10:50 Pulse 65 01/16/22 10:50 Resp 18 01/16/22 10:50 BP 134/76 01/16/22 10:50 Pulse Ox 97 01/16/22 10:50 O2 Del Method 01/16/22 10:51 Physical Exam Narrative: Narrative:?? EXAM NARRATIVE: Lamine ward presents wit h antalgic right g ait. ? Demonstrate s raising up onto heels and toes wit h difficulty.? Exh ibits normal coord ination and normal stability.? Moder ate palpatory or p ercussion pain thr oughout the parasp inous musculature of the thoracolumb ar spine.? Decreas ed functional rang e of motion of the thoracolumbar spi ne with Flexion to 45 degrees, exten ds 15 degrees, lat erally bends 10 de grees symmetricall y.? Normal sensati on to light touch through all dermat omal layers.? Norm al sensation light touch down both l ower extremities w ith 4/5 motor stre ngth throughout al l motor groups wor se on the right th an the left.? No p alpable pain over the SI joints bila terally.? Negative Scott and Tyson e sign.? Positive straight leg raise the right negativ e on the left.? Sk in is clear warm w ith normal sensati on to light touch, calves are supple with no medial th igh tenderness,? n egative Homans' si gn.? No palpable l ymphadenopathy amanda aterally.? Reflexe s are 2+ and symme tric about the kne es and Achilles.? No hyperreflexia o r clonus.? Downgoi ng Babinski's bila terally.? Dorsalis pedis and posteri or tibial pulses a re 2+.? No palpabl e edema bilaterall y. HENMT:?? COMMON NORMALS: no rmocephalic? HEAD & SCALP: normoceph alic Resp:?? COMMON NORMALS: no rmal respiratory e ffort Cardio:?? COMMON NORMALS: re gular rate and reg ular rhythm? RATE: regular rate? RHY THM: regular rhyth m GI:?? COMMON NORMALS: So ft to palpation an d non-tender? PALP ATION: Yes Soft to palpation :?? COMMON NORMALS: Ye s no CVA tendernes s? BLADDER/KIDNEY EXAM: Yes no CVA t enderness Back/Pelvis:?? COMMON NORMALS: no CVA tenderness Psych:?? COMMON NORMALS: me ntal status grossl y normal and coope rative Data : 01/10/22 09:34 01/10/22 09:34 A&P Assessment and plan (1) Spondylolisthesis at L4-L5 level: L4/5 PLIF Attestations Medical Necessity Statement*: failed conservative tx Coding Level of Care Code Acute Weft Straightener for g Fwd Diagnoses Spondylolisthesis at L4-L5 level M43.16
--- NOTE | 2022-01-16 13:14 | P.ANESUD_ITS ---
Pre-Anesthetic Update Pre-Anesthetic Assessment: Date of Surgery/Procedure: 01/16/22 Preop Day gnosis: L4-5 spondylolisthesis with radiculopathy Proposed Procedure: Operation Date: 01/16/22 12:15 Proposed Procedures p Posterior Lumbar Interbody Fusion l4/5 [id number]/m43.16/m47.27(Not Applicable) - Roberto Carlos Castellanos, DO s Lumbar Spine Decompression(Not Applicable) - Roberto Carlosclarke Castellanos, DO Any changes to Pre-Anesthetic Assessment?: No Last Intake: Intake Last Liquid Date 01/15/22 Last Liquid Time 21:00 Last Solid Date 01/15/22 Last Solid Time 17:00 Vitals: Temperature 97.7 F 01/16/22 10:50 Temperature Source Temporal Artery S can 01/16/22 10:50 Pulse Rate 65 01/16/22 10:50 Respiratory Rate 18 01/16/22 10:50 Blood Pressure 134/76 01/16/22 10:50 Blood Pressure Roberta n 95 01/16/22 10:50 Pulse Oximetry 97 01/16/22 10:50 Oxygen Delivery Me thod 01/16/22 10:51 Exam: Pre-Anes Outpt Exam: alert, oriented x 3, clear to auscultation bilaterally and regular rate & rhythm Cardiac Studies: No Data to Display
[2022-01-16] MEDS: ceFAZolin 2,000 MG in sodium chloride 0.9% (plus) 50 ML 100 MG IV ×2 (14:50→21:29)
[2022-01-16] MEDS: heparin, porcine 1,000 unit/mL INJ 10 mL 10000 UNIT XX (16:08)
[2022-01-16] MEDS: vancomycin 1,000 MG SDV 1000 MG XX (16:08)
--- NOTE | 2022-01-16 17:26 | PM.OP ---
Operative Report Date of procedure: January 16, 2022 Pre-op diagnosis: Preop Diagnosis L4-5 spondylolisthesis with radiculopathy Post-op diagnosis: same Procedure done: 1.? L4/5 Interbody fusion with posterolateral fusion 2.? Instrumentation L4/5 3. Cage at L4/5 4. Laminectomy L4 5. use of autograft from same incision 6. allograft 7. Bone marrow aspirate from right iliac crest 8. use of computer navigation / stereotactic spine Surgeon: Roberto Carlos Castellanos High Energy Forming Equipment Operator: Cr Adames High Energy Forming Equipment Operator: The surgical territory manager, Cr Adames, PAC was needed for his expertise under the microscope. He was important and necessary throughout the procedure to complete in a safe and timely manner. He assisted with patient positioning prepping and draping tissue retraction suctioning of the operative field protection of the dural sac and tissue closure Estimated blood loss (mL): 300 Procedure: 1.? L4/5 Interbody fusion with posterolateral fusion 2.? Instrumentation L4/5 3. Cage at L4/5 4. Laminectomy L4 5. use of autograft from same incision 6. allograft 7. Bone marrow aspirate from right iliac crest 8. use of computer navigation / stereotactic spine Patient is brought to the operative suite.? After undergoing anesthesia, the patient had neuro monitoring attached.? Patient was then placed in the prone position on the Sudhakar table.? All areas of impingement were well-padded.? Patient was then prepped and draped in the normal sterile fashion.? Skin incision was then made over the L4/5 space.? Subperiosteal dissection was made out to the transverse processes of L4and L5.? Once the exposure was complete attention was then brought to obtaining bone marrow aspirate from the right iliac crest. The [employer] bone marrow aspirate kit was used to aspirate bone marrow aspirate from right iliac crest.? This was done by using the sharp probe to open up the bone.? Aspiration was performed and then the blunt probe was then used to dissect down to through the bone tunnel.? An aspirating well drawn back a millimeter approximately 20 cc of bone marrow aspirate was used.? Admixed with the allograft and autograft bone that will be used. Next attention was brought to placing the fiducial for the computer navigation.? 2 pins were placed into the iliac crest.? These pins were later removed at the end of the case.? The fiducial was then attached to these pins.? The C-arm was brought in and spun around the patient.? The information from the C-arm was loaded in the computer for later use for placing the computer navigated pedicle screws. The technique for placing the pedicle screws was to use a drill followed by the gearshift probe linked to computer navigation.? Followed by the ball probe to feel the superior inferior medial lateral abdi of the pedicles.? Then placement of the screws using the computer navigation.? Was done at each pedicle.? Screws were placed at L4 bilaterally and L5 .? Next attention was brought to performing the laminectomy ofL4.? This was done using the high-speed bur Kerrisons and curettes.? Once the lamina was removed and then attention was brought to performing a partial facetectomy on the contralateral side.? This was done again using the high-speed bur curettes and Kerrisons.? The ligamentum flavum was taken down bilaterally from L4 to L5 .? ? Attention was then brought to the facet on the ipsilateral side.? The facet was taken down.? The L5 nerve was decompressed as it passed around the L5 pedicle.? The laminectomy was done for purposes of decompressing the nerve as well as placement of the cage.? The L4 nerve was identified as it traversed through the L4 foramen.? The thecal sac was identified and retracted.? The L4/5 disc base was identified.? Using a knife the disc base was opened.? And then sequential maryellen were placed.? The first shaver was a 6 and the last shaver was a 13.? Using a pituitary and down going curette the endplates were scraped and disc material was removed from the space.? Once adequate decompression of the disc base was felt to be had.? Osteoamp sponge was packed into the anterior aspect of the disc base.? Then a size 13 cage from [employer] was placed after packing osteoamp into the cage.? While placing the cage the thecal sac and L5 nerve was protected.? C arm was used to ensure that the cages placed in the appropriate position. Attention was then brought to attaching the rods to the screws placed in the L4 and L5 bilaterally.? Caps were torqued into position. Locking the construct in place. Wound was copiously irrigated and then attention was brought to decorticating the facets and transverse processes laterally.? Bone that was taken down from the lamina was used along with osteoamp fibers and sponges were packed into the lateral gutters along the facet joints.? This was done bilaterally. Wound was then closed in a layered fashion starting with the thoracolumbar fascia.? 0-vicryl was used the sub cutaneous tissue was closed with 2-0 vicryl and skin with 4-0 monocryl.? Glue was then used to seal the skin and a steril dressing was applied.? Patient was then placed in the supine position. The endotracheal tube was removed and patient was transferred to the PACU in stable condition.
--- NOTE | 2022-01-16 17:44 | SUR.PHASEI ---
1731 PT TO PACU 5 PT SLEEPING WITH ORAL AIRWAY IN PLACE, MANUAL ASSIST TO KEEP AIRWAY OPEN, GOOD RESP EFFORT NOTED SATS 97% ON 8L O2 MASK, DRESSING TO BACK D/I WITH HEMAVAC DRAIN COMPRESSED WITH APPROX 30 ML DARK RED DRAINAGE NOTED TO DRAIN, GOOD SUCTION MAINTAINED, MONITOR SR WITH NO ECTOPY NOTED. IV TO LT HAND #18 PATENT TO 200 ML NS AT KVO RATE PER GRAVITY, BILAT SCDS ON AND WORKING , PT HAS SHEA CATHETER TO DEPENDANT DRAINAGE WITH YELLOW URINE NOTED TO TUBING AND BAG, STATLOCK TO RT INNER THIGH. 1745 PT AWAKES, ORAL AIRWAY OUT , GOOD RESP EFFORT PT VERBALLY DENIES PAIN AND NAUSEA, WANTS TO REPOSITION, WARM BLANKETS UNDER ARMS AND UNDER KNEES, HOB AT 30 DEGREES. 1754 PT PLACED ON 3LNC TO KEEP SATS OVER 94%
[2022-01-16] MEDS: HYDROmorphone 1 mg/mL INJ 1 mL 0.5 MG IVP ×2 (17:59→18:16)
--- NOTE | 2022-01-16 18:05 | ANE.PACU2 ---
Inpatient post-anesthesia follow up: Airway intact: Yes Vital signs: Temperature 98.0 F Pulse Rate 80 Respiratory Rate 18 Blood Pressure 125/88 Pulse Oximetry 99 Oxygen Delivery Me thod Simple Mask Oxygen Flow Rate 8 Fraction of Inspir ed Oxygen Hydration adequate: Yes Nausea and vomiting: No Pain level: 5 Mental status: Baseline
--- NOTE | 2022-01-16 18:09 | SUR.PHASEI ---
7459 PT AWAKES AND C/O OF PAIN OF 9 PT REPOSTIONED TO RT SIDE PT LOG ROLLED DRESSING TO BACK D/I DRAIN COMPRESSED WITH ADEQUATE SUCTION NOTED PILLOW BETWEEN KNEES HOB AT 10 DEGREES SEE MED GIVEN
--- NOTE | 2022-01-16 18:23 | SUR.PHASEI ---
1814 PT REPOSITIONED BACK ON BACK WITH HOB AT 10 DEGREES , PT MOVES ALL EXTREMITIES TO COMMAND, EQUALLY AND STRONGLY, PT HAS EQUAL AND STRONG DORSAL FLEXATION AND EXTENSION, DRAIN COMPRESSED SEE PAIN MED GIVEN, PT AWAKE ALERT TALKATIVE.
--- NOTE | 2022-01-16 18:24 | SUR.PHASEI ---
PT SLEEPS NOW IF NOT DISTURBED, VSS SATS 98-99 ON 3LNC.
--- NOTE | 2022-01-16 19:01 | SUR.PHASEI ---
PT TO FLOOR PER BED PT WEIGHS 230 LBS, PT PLACED ON TRANSFER MAT ON FLOOR WITH ASSIST OF 3 STAFF,PT MOVED TO BED WITH AIR TRANSPORT, PT AWAKE ALERT TALKATIVE, DRESSING TO LOWER BACK D/I DRAIN IN PLACE AND COMPRESSED WITH SMALL AMT RED DRAINAGE NOTED SHEA PATENT OF YELLOW CLEAR URINE TO TUBING AND BAG. HANDOFF AT BEDSIDE TO CHELI RN, PT AWAKE ALERT TALKATIVE AND APPROPRIATE, ASSSISTING NEEDED , PT TO ROOM.
--- NOTE | 2022-01-16 19:03 | SUR.PHASEI ---
1810 LATE ENTRY PT UPDATED PER PHONE PT AWAKE ALERT STABLE AND GOING TO ROOM IN APPROX 20 MINTUTES. NO PROBLEMS OR CONCERNS VOICED.
[2022-01-16] MEDS: HYDROcodone-acetaminophen 5-325 mg Tablet PO ×2 (19:43→23:44)
[2022-01-16] MEDS: ketorolac 30 mg/mL INJ IVP (19:46)
[2022-01-16] MEDS: lactated ringers 1,000 ML 90 ML IV (19:49)
[2022-01-16] MEDS: docusate sodium 100 mg Capsule PO (19:50)
[2022-01-16] MEDS: morphine 4 mg/mL SDV 1 mL 2 MG IVP (23:34)
[2022-01-17] VITALS (7 sets, daily range): BP systolic 94–136; BP diastolic 56–77; PULSE 55–82; RESP 16–18; TEMP 36.7–36.9; O2SAT 92–99
[2022-01-17] MEDS: HYDROcodone-acetaminophen 5-325 mg Tablet PO ×3 (03:39→12:05)
[2022-01-17] MEDS: ceFAZolin 2,000 MG in sodium chloride 0.9% (plus) 50 ML 100 MG IV ×2 (05:45→13:00)
[2022-01-17] MEDS: lactated ringers 1,000 ML 90 ML IV (05:48)
--- NOTE | 2022-01-17 07:21 | PM.PN ---
Subjective Subjective: POD 1 Patient resting comfortably. Reports some mild back pain. States her legs are feeling better. Denies any chest pain, shortness of breath, headaches. Vitals/I&O/Wt Last Vital Signs Temp 98.4 F 01/17/22 06:00 Pulse 82 01/17/22 06:00 Resp 17 01/17/22 06:00 BP 123/69 01/17/22 06:00 Pulse Ox 92 01/17/22 06:00 O2 Del Method 01/17/22 06:00 O2 Flow Rate 2 01/17/22 06:00 01/16/22 01/17/22 01/17/22 22:59 06:59 14:59 Intake Total 1710 / 1710 1748.5 / 3458.5 Output Total 800 / 800 1165 / 1965 Balance 910 / 910 583.5 / 1493.5 Weight last 48 hrs Weight 243 lb 1 oz Physical Exam Narrative: Patient presents alert and oriented x3 with a good general appearance normal mood and affect. Normal coordination normal stability. Mild tenderness around the incisional site with the incision appear to be clean and dry with Hemovac intact. No signs of erythema or drainage. No signs of infection. Patient denies any fevers or chills. 5/5 motor strength both lower extremities with negative straight leg raise bilaterally. Calves are supple no medial thigh tenderness. Pulses are 2+ at the dorsalis pedis and posterior tibial region. Good capillary refill throughout normal sensation light touch both lower extremities. Urinary Catheter Management: Valentin Latex: Cath Placed During This Visit: yes Reason for Continuing Indwelling Catheter: Perioperative Use in Selected Surgeries Urinary Catheter Date of Insertion: 01/16/22 Urinary Catheter Time of Insertion: 15:10 Data : 01/10/22 09:34 01/10/22 09:34 A&P Assessment and plan (1) Status post lumbar spinal fusion: Physical therapy to evaluate and mobilize. Discontinue Valentin catheter. Discontinue Hemovac drain. Encourage incentive spirometry for pulmonary toilet. Discharge home later today if remains stable. See her back in the office in 1 week's time for a wound check. She will call if she is having problems. Attestations Medical Necessity Statement*: Discharge home later today. Coding Level of Care Code Acute Fitness And Wellness Manager for Dinah Brewer Diagnoses Status post lumbar spinal fusion Z98.1
[2022-01-17] MEDS: docusate sodium 100 mg Capsule PO (08:06)
[2022-01-17] MEDS: lisinopril 20 mg Tablet PO (08:06)
[2022-01-17] MEDS: morphine 4 mg/mL SDV 1 mL 2 MG IVP (09:36)
--- NOTE | 2022-01-17 10:41 | PC.CHAP ---
Pastoral Care Encounter/Spiritual Assessment Type of Contact [] Declined agency director visit [] Patient/Family/Request visit [] Outpatient visit [] Follow-up visit [] Physician referral [] Code/Alert [x] Routine visit [] Staff referral [] Actively dying [] Patient sleeping [] Family support [] [] Out of room [] Palliative care [] [x] Receiving care in room [] Pre-surgical visit [] Trauma [] Long length of stay [] ICU visit [] Other: Relational/Emotional Strength [x] Patient feels connected with others/family/visitors/staff [] Distress [] Loneliness/isolation [] Abandonment Spirituality of Patient [x] Person of Lizzeth [] Attends Restorationist of their Lizzeth [x] Believes in Prayer [] Reads Bible or Yarsanism materials [] There are Spiritual issues to be addressed Solar Installation Foreman Interventions [x] Prayer [x] Active listening [x] Non-anxious presence [x] Spiritual/emotional support [] Crisis/trauma care [x] Spiritual counseling [] Bereavement support [] Provided bereavement packet [] Provided Bible/devotional materials [] Provided toy/stuffed animal, coloring book to patient or family member [] Provided Communion [] Anointing/[place] [] Salvation [x] Completed spiritual assessment [] Other: Impact on Illness or Injury [] Angry [] Fearful [] Anxious [] Often cries [] Exhaustion [] Unable to work [] Unable to attend mandaeism [] Unable to walk/stand [] Unable to read [] Unable to drive [] Unable to eat/drink [] Unable to sleep [] Unable to be with family [] Patient intubated [] Other: Summary had back surgery in some pain well go home go home for rehab has posstive attitude Time spent with patient 10 mins
[2022-01-17] MEDS: ketorolac 30 mg/mL INJ IVP (11:09)
--- NOTE | 2022-01-17 14:47 | PC.NURSE ---
called Dr. Hankins and got the prescription sent to [facility] in [facility]
--- NOTE | 2022-01-21 06:16 | PM.DCS ---
Discharge Providers Date of Admission: 01/16/22 17:23 Date of Discharge: January 18, 2022 Attending Provider at Admission: Roberto Carlos Castellanos DO Attending Provider at Discharge: Roberto Carlos Castellanos DO Primary Care Provider: KARLOS Esquivel Diagnoses at Discharge Discharge Diagnosis (1) Status post lumbar spinal fusion: Status: Acute Reason for Visit Reason for Visit: PLIF W/DECOMPRESSION [id number] Hospital Course Hospital Course uneventful Physical Exam Urinary Catheter Management: Valentin Latex: Cath Placed During This Visit: yes, but has since been removed by the nurse Reason for Continuing Indwelling Catheter: Decision to DC Catheter Urinary Catheter Date of Insertion: 01/16/22 Urinary Catheter Time of Insertion: 15:10 Date Urinary Catheter Removed: 01/17/22 Time Urinary Catheter Discontinued: 08:25 Discharge Data Studies Completed and Pending Completed Studies During Hospitalization Category Date Time Status XR lumbar spine 2-3V* 16022 Routine Exams 01/16/22 Completed Radiology Impressions Lumbar Spine X-Ray 01/16/22 00:00 Impression: Posterior lumbar fusion at L4-L5. Laboratory Results WBC 6.4 10^3/uL (4.0-10.0) 01/10/22 09:34 RBC 4.85 10^6/uL (4.1-5.3) 01/10/22 09:34 Hgb 15.0 g/dL (11.5-15.3) 01/10/22 09:34 Hct 45.4 % (37.0-47.0) 01/10/22 09:34 MCV 93.6 fl (81-99) 01/10/22 09:34 MCH 30.9 pg (28.0-34.0) 01/10/22 09:34 MCHC 33.0 g/dL (30.0-36.0) 01/10/22 09:34 RDW 12.3 % (12.1-15.1) 01/10/22 09:34 Plt Count 175 10^3/cmm (130-400) 01/10/22 09:34 MPV 10.5 fL (7.4-10.4) H 01/10/22 09:34 Neut % (Auto) 58.2 % 01/10/22 09:34 Lymph % (Auto) 31.0 % 01/10/22 09:34 [place] % (Auto) 7.8 % 01/10/22 09:34 Eos % (Auto) 1.9 % 01/10/22 09:34 Baso % (Auto) 0.6 % 01/10/22 09:34 Neut # (Auto) 3.72 10^3/uL (1.8-7.7) 01/10/22 09:34 Lymph # (Auto) 2.0 10^3/uL (0.8-4.8) 01/10/22 09:34 [place] # (Auto) 0.5 10^3/uL (0.2-0.9) 01/10/22 09:34 Eos # (Auto) 0.1 10^3/uL (0.0-0.8) 01/10/22 09:34 Baso # (Auto) 0.0 10^3/uL (0.0-0.1) 01/10/22 09:34 Nucleated RBC % (auto) 0 % 01/10/22 09:34 Nucleated RBCs # 0.0 /100WBC 01/10/22 09:34 Sodium 138 mmol/L (136-145) 01/10/22 09:34 Potassium 4.0 mmol/L (3.5-5.1) 01/10/22 09:34 Chloride 104 mmol/L (98-107) 01/10/22 09:34 Carbon Dioxide 23 mmol/L (22-29) 01/10/22 09:34 Anion Gap 15.0 (5-19) 01/10/22 09:34 BUN 8 mg/dL (6-20) 01/10/22 09:34 Creatinine 0.6 mg/dL (0.5-0.9) 01/10/22 09:34 GFR Calculation 105.8 mL/min (90-130) 01/10/22 09:34 Glucose 126 mg/dL (65-115) H 01/10/22 09:34 Calculated Osmolality 286 mOsm/kg (285-295) 01/10/22 09:34 Calcium 9.5 mg/dL (8.5-10.5) 01/10/22 09:34 Vitals Last Vital Signs Temp 98.2 F 01/17/22 14:00 Pulse 64 01/17/22 14:00 Resp 16 01/17/22 14:00 BP 136/77 01/17/22 14:00 Pulse Ox 99 01/17/22 14:00 O2 Del Method 01/17/22 11:19 O2 Flow Rate 2 01/17/22 06:00 Discharge Plan Discharge Patient Disposition: Home Condition: Stable Prescriptions: New hydrocodone-acetaminophen 5-325 mg Tablet 1 - 2 tab PO Q4H PRN (Reason: Postop Pain) Qty: 40 0RF Continued (DME) Inraoperative Neuromonitoring See Rx Instructions .Route .MEDSUPPLY Qty: 1 0RF Rx Instructions: As directed (DME) Bone Growth stimulator E0748 See Rx Instructions .Route .MEDSUPPLY Qty: 1 0RF Rx Instructions: As directed acetaminophen 650 mg Tablet 650 mg PO Q4H PRN (Reason: Pain) lisinopril 20 mg tablet 20 mg PO DAILY Rx Instructions: TAKE ONE TABLET BY MOUTH DAILY Discharge Orders: Discharge Order (Routine); Ordered 01/17/22 Ordered By: Cr Adames Other Ambulatory Orders: DME: Walker (Order) Location: None Selected Ordered By: Roberto Carlos Castellanos Referrals: Roberto Carlos Castellanos, [Physician] - 01/24/22 3:15 pm Discharge Diet: Advance as tolerated Discharge Activity: Limit activity as instructed Patient Instructions: Hydrocodone/Acetaminophen (By mouth), Lumbar Spinal Fusion (GEN), Opioid Safety Activity Restrictions/Additional Instructions: Thank you for choosing [facility] for your care! The following is a list of instructions, from your provider, to follow upon your discharge to ensure you have the optimal recovery from your recent injury or surgery. Follow-up care is a mckeon part of your treatment and safety. Be sure to make and go to all appointments and call your doctor if you are having problems. If you do not already have a follow-up appointment made, call Dr. Castellanos's] office in the next 1-3 days to make follow up appointment for 1 weeks at [phone]. It is also a good idea to know your test results and keep a list of the medicines you take. Medications will be prescribed for you at your provider's discretion. These medications are to be used as instructed; if they are taken more often that prescribed they will not be refilled early and in most cases will not be refilled at all. > When a refill is needed, you should contact oleksandr vasquez 2-3 business days before your prescription runs out. Medications will NOT be refilled by school operations manager providers after hours! > Many pain medications contain Tylenol (Acetaminophen). Do not consume more than 4,000 mg of Tylenol per day in total with any combination of medications. > Pain medications can cause constipation. Please use an over the counter stool softener as directed, while taking pain medications. Consult your local pharmacist with questions or recommendations on stool softeners. If constipation persists, contact our office or your primary care provider. > While under our care, you are not to receive pain medications or other controlled substances from any other provider unless our office is notified and approves. Any attempts to do so will result in refusal to prescribe any further pain medications and possible dismissal from our practice. ? Walking is essential for the healing process after surgery. We would like you to slowly advance your walking. This should be done on relatively flat clear ground (inside or out) or can be done on a treadmill. Remember this goal does not have to happen all at once, slowly increase your distance and duration. This can be broken into more more than one walk per day as tolerated. Patients who walk as directed after surgery rarely require Physical Therapy. In the unlikely event this issue arises your provider will direct hospital staff to make the appropriate arrangements. ? No lifting over 5 pounds {a gallon of milk) or bending/twisting until further notice. Each of these activities places an unnecessary amount of stress onto the body and can impede the delicate healing process. > Instead of bending at the waist, keep your back straight and bend at the knees. > Instead of twisting your torso, keep your back straight and turn your entire body with your feet. ? You may sleep in any position which makes you comfortable. Many patients find comfort sleeping in a reclining chair. It is not abnormal to have difficulty sleeping for the first several weeks following your surgery. We recommend trying Benadry! or Tylenol PM as directed to help with your sleeping difficulties. Both medications are over the counter and available without prescription. ? NO SMOKING!!! Smoking dramatically increases the probability of developing postoperative wound infections. ? Common complaints after lumbar and/or thoracic spine surgery include, but are not limited to: numbness and/or tingling in the legs, pain around the incision and surrounding tissues, muscle spasms, or stiffness of the middle to low back. Contact our office if these symptoms persist or if an acute change occurs. ? No driving for the first 3-5days, and not while taking narcotics until seen at your follow-up appointment and cleared. There are no restrictions for riding on short trips, however if you take a longer trip, arrangements should be made to make regular stops to get out of the vehicle and stretch . ? Swelling is an unfortunate event that will take place with any surgery and is the primary source of your postoperative discomfort. While walking and regular approved activities helps control inflammation, there are additional steps you can take to minimize swelling. > Place ice over the surgical site and surrounding tissue for twenty minutes, followed by applying a low/medium heat (heating pad) for an additional twenty minutes every 1-2 hours as needed for painrelief. > You may use of over the counter anti-inflammatory medications (Ibuprofen, Motrin, Aleve, Advil, etc) as directed on the package label. These types of medicines will significantly reduce the amount of discomfort you experience after surgery from swelling. It should be noted that if you have and allergy to any of these medications, or a history of ulcers or kidney disease you should consult you primary care provider prior to starting these medications. Discharge Attestations Time Spent in Discharge Care*: less than 30 min Quality Metrics Clinical Quality Measures [ No reported AMI, CVA or VTE this stay] Coding Level of Care Code Acute Chg FW DC note Diagnoses Status post lumbar spinal fusion Z98.1
== END 2022-01-17 14:02 | disposition home or self-care (01) | DRG 455 ==
LOC: MEDSURG 17:23
PROVIDERS: Anesthesiology; Admitting Provider Orthopaedic Surgery; PCP Nurse Practitioner Family; Visit Provider Orthopaedic Surgery
PROC: 0SG00AJ Fusion of Lumbar Vertebral Joint with Interbody Fusion Device, Posterior Approach, Anterior Column, Open Approach (ICD-10-PCS; CPT 22612; principal; 2022-01-16 12:15)
PROC: 0SG00AJ Fusion of Lumbar Vertebral Joint with Interbody Fusion Device, Posterior Approach, Anterior Column, Open Approach (ICD-10-PCS; CPT 63005; 2022-01-16 12:15)
DX: M43.16 Spondylolisthesis, lumbar region (principal); I10 Essential (primary) hypertension; G47.33 Obstructive sleep apnea (adult) (pediatric); F17.210 Nicotine dependence, cigarettes, uncomplicated
CPT/HCPCS: 51702; 72100; 76000; 80048; 85025; 97161; C1713; J0690; J1170; J1644; J1885; J2250; J2270; J2704; J3010; J3370; J3490; J7030; J7120

== ENCOUNTER → 2022-01-29 11:04 | Outpatient (BNVA) | payer MEDICAID, SELFPAY | PROVIDERS: PCP Nurse Practitioner Family; Visit Provider Physician Assistant | DX: Z98.1 Arthrodesis status (principal); Z47.89 Encounter for other orthopedic aftercare | CPT/HCPCS: 72100 ==

== ENCOUNTER → 2022-02-26 10:17 | Outpatient (BNVA) | payer MEDICAID, SELFPAY | PROVIDERS: PCP Nurse Practitioner Family; Visit Provider Physician Assistant | DX: Z98.1 Arthrodesis status (principal) | CPT/HCPCS: 72100 ==

== ENCOUNTER 2022-04-16 11:52 | Outpatient (CLI) | payer MEDICAID, SELFPAY ==
[2022-04-16 12:32] LABS: Basophils # 0.1 10^3/uL (0.0-0.1); Basophils % 0.7 %; Eosinophils # 0.1 10^3/uL (0.0-0.8); Eosinophils % 1.3 %; Hematocrit 47.2 % (37.0-47.0); Hemoglobin 15.4 g/dL (11.5-15.3); Lymphocytes # 3.3 10^3/uL (0.8-4.8); Lymphocytes % 34.9 %; Mean Corpuscular HGB Conc 32.6 g/dL (30.0-36.0); Mean Corpuscular Hemoglobin 29.1 pg (28.0-34.0); Mean Corpuscular Volume 89.2 fl (81-99); Monocytes # 0.8 10^3/uL (0.2-0.9); Monocytes % 8.4 %; Neutrophils # 5.18 10^3/uL (1.8-7.7); Neutrophils % 54.2 %; Nucleated Red Blood Cells % 0 %; Platelet Count 205 10^3/cmm (130-400); Red Blood Count 5.29 10^6/uL (4.1-5.3); Red Cell Distribution Width 12.8 % (12.1-15.1); White Blood Count 9.6 10^3/uL (4.0-10.0)
[2022-04-16 13:15] LABS: 25 Hydroxy Vitamin D 21 ng/mL (30-100); Alanine Aminotransferase 45 U/L (0-33); Albumin Level 4.3 g/dL (3.5-5.2); Alkaline Phosphatase 92 U/L (35-105); Anion Gap 17.5 (5-19); Aspartate Amino Transferase 54 U/L (0-32); Blood Urea Nitrogen 15 mg/dL (6-20); Calcium 9.4 mg/dL (8.5-10.5); Carbon Dioxide 21 mmol/L (22-29); Chloride 99 mmol/L (98-107); Chol HDL Ratio 3.84 mg/dL (0.0-4.40); Cholesterol 169 mg/dL (0-200); Globulin 3.2 g/dL (1.3-4.6); Glomerular Filtration Rate 105.8 mL/min (90-130); Glucose 111 mg/dL (65-115); HDL Cholesterol 44 mg/dL (60-100); LDL Cholesterol Calculated 83 mg/dL (50-129); LDL HDL Ratio 1.89 RATIO (0.00-3.22); Osmolality Calculated 280 mOsm/kg (285-295); Potassium 3.5 mmol/L (3.5-5.1); Sodium 134 mmol/L (136-145); Thyroid Stimulating Hormone 2.98 uIU/mL (0.27-4.20); Total Bilirubin 0.4 mg/dL (0.15-1.2); Total Protein 7.5 g/dL (6.6-8.7); Triglycerides 212 mg/dL (0-150); Vitamin B12 507 pg/mL (232-1245)
== END 2022-04-16 11:53 | disposition home or self-care (01) ==
LOC: LAB 11:55
PROVIDERS: PCP Nurse Practitioner Family; Visit Provider Nurse Practitioner Family
DX: M47.27 Other spondylosis with radiculopathy, lumbosacral region (principal); I10 Essential (primary) hypertension; M10.9 Gout, unspecified
CPT/HCPCS: 80053; 80061; 82306; 82607; 84443; 84550; 85025

== ENCOUNTER → 2022-06-11 13:41 | Outpatient (BNVA) | payer MEDICAID, SELFPAY | PROVIDERS: PCP Nurse Practitioner Family; Visit Provider Nurse Practitioner Family | DX: M19.012 Primary osteoarthritis, left shoulder (principal) | CPT/HCPCS: 73030; 80053; 81000 ==

== ENCOUNTER 2022-07-15 15:36 | Emergency (ER) | payer MEDICAID, SELFPAY ==
[2022-07-15 15:50] VITALS: BP 152/83; PULSE 54; RESP 16; TEMP 36.9; O2SAT 95; BMI 38.2
--- NOTE | 2022-07-15 15:53 | ECG_ITS ---
[facility] Test Date: 2022-07-15 Pat Name: Danielle Badillo Department: Room: Gender: Female Supervisor Polishing: : 1970 Requested By: Zaki Mckeon Order Number: [id number] Pérez MD: Deyvi Mendoza M.D. Measurements Intervals [place] Rate: 53 P: 144 [place]: 158 QRS: 118 QRSD: 94 T: 151 QT: 388 QTc: 367 Interpretive Statements ECTOPIC ATRIAL BRADYCARDIA INDETERMINATE AXIS LOW QRS VOLTAGE [QRS DEFLECTION < 0.5/1.0 mV IN LIMB/CHEST LEADS] PATTERN CONSISTENT WITH PULMONARY DISEASE POSSIBLE INFERIOR MYOCARDIAL INFARCTION , PROBABLY OLD [30 ms Q WAVE IN II/aVF] Compared to ECG 11/22/2018 20:49:12 Bradycardia, nonsinus now present Indeterminate axis now present Sinus bradycardia no longer present Myocardial infarct finding still present Electronically Signed On 07-15-2022 17:09:32 CDT by Deyvi Mendoza M.D. [email or web address]
--- NOTE | 2022-07-15 17:09 | ED_ITS ---
HPI - URI/Sore Throat General: Chief Complaint: Upper Respiratory Infection Stated Complaint: Chest Pain, SOB Time Seen by Provider: 07/15/22 17:01 History of Present Illness: Patient presents to the ER with complaints of intermittent chest pain cough fever body aches for the last 3 days. Patient says she has had a productive cough of small amount of green sputum. She thinks this is started in her sinuses way down to the chest. Patient does report worsening chest pain and shortness of breath lying flat and also when coughing. MD elicited complaint: fever, cough, nasal congestion and sinus pain Onset (ago): day(s) (3 days ago) Consistency: constant and progressively worsening Severity: moderate Description of mucous: yellow and green Able to tolerate fluids by mouth: Yes Exacerbating factors: supine positioning Relieving factors: nothing Associated symptoms: Reports chills, chest pain, congestion, cough and fever(s); Deny abdominal pain, nausea or vomiting Treatments prior to arrival: none Review of Systems General: Reports: 10 or more systems reviewed and unremarkable except in HPI and below Const: Reports: fever(s) and chills Eyes: Denies: change in vision or photophobia ENMT: Denies: throat pain, uvular edema or enlarged tonsils Card: Reports: chest pain; Denies: palpitations or irregular heart rhythm Resp: Reports: dyspnea and productive cough GI: Denies: abdominal pain, nausea or vomiting : Denies: flank pain, difficulty voiding or dysuria Musc: Denies: neck pain, back pain or extremity pain PFSH ED PFSH: Medical History Colon polyps Degenerative joint disease (DJD) of lumbar spine High risk medication use Hypertension Inflammatory arthritis Obstructive sleep apnea Surgical History History of delivery x2 ----->1990, 1996 History of cholecystectomy 1993--laparoscopic procedure S/P excision of lipoma (11/15/20) Left arm Status post colonoscopy (08/29/21) Status post hysteroscopy 08/10/2020---[place] [facility] [place] At time of hysteroscopy 3 endometrial polyps were noted and removed-bilateral ostia visualized-no other pathology seen. Pathology showed benign endometrial polyps with fragments of myometrium, no atypia hyperplasia or malignancy identified Status post tubal ligation 1996 at time of second Family History Mother Heart disease Hypertension Hyperlipidemia Father Heart disease Hypertension Hyperlipidemia Sister Heart disease Thyroid condition Hypertension Hyperlipidemia Brother Heart disease Hypertension Hyperlipidemia Other Lupus Rheumatoid arthritis Denies family history of Colon cancer Ovarian cancer Diabetes Breast cancer Lung disease Uterine cancer Stroke Social History Smoking and tobacco status: former smoker Quit status (tobacco): has quit using tobacco Year quit tobacco: 01/2022 Second hand smoke exposure: Yes Alcohol intake: never Substance/Drug Use: never Caregiver/support person: Yes Lives independently: Yes Household members: spouse Housing: House Marital status: service: No Current occupational status: disabled Current gender identity: Female Special jonathan needs: No Agree to transfusion: Yes Physical Exam Const: COMMON NORMALS: no acute distress, average body habitus, patient oriented x3, no limitations, healthy appearing, alert and well nourished HENMT: THROAT: posterior oropharynx normal, tonsils normal and uvula midline; no uvular edema Eye: COMMON NORMALS: Equal, round and reactive pupils present, EOMs intact bilaterally, conjunctivae normal and no scleral icterus CONJUNCTIVA: Yes conjunctivae normal PUPIL: Yes Equal, round and reactive pupils present Neck/C-Spine: COMMON NORMALS: full ROM, no lymphadenopathy, supple, no meningeal signs, no JVD and Thyroid normal THYROID: Thyroid normal Lymph: LYMPHATIC: no lymphadenopathy noted Chest: COMMONS NORMALS: normal inspection of the chest and normal palpation of entire chest wall Resp: COMMON NORMALS: normal respiratory effort, No retractions, No use of accessory muscles and clear to auscultation bilaterally AUSCULTATION: clear to auscultation bilaterally Cardio: COMMON NORMALS: no JVD, regular rate, regular rhythm, S1 normal heart sound present and S2 normal heart sound present RATE: regular rate RHYTHM: regular rhythm HEART SOUNDS: S1 normal heart sound present and S2 normal heart sound present GI: COMMON NORMALS: Normal to inspection, nondistended, normoactive bowel sounds present, Soft to palpation, non-tender, No hepatosplenomegaly present and no masses PALPATION: Yes Soft to palpation and Yes No hepatosplenomegaly present : COMMON NORMALS: Yes no CVA tenderness BLADDER/KIDNEY EXAM: Yes no CVA tenderness Back/Pelvis: COMMON NORMALS: no CVA tenderness Neuro: COMMON NORMALS: patient oriented x3 SENSORIUM/ORIENTATION: Yes alert MENINGEAL SIGNS: Yes no meningeal signs Course Vital Signs: Vital signs: Vital Signs Temperature 98.4 F 07/15/22 15:50 Pulse Rate 60 07/15/22 18:41 Respiratory Rate 16 07/15/22 15:50 Blood Pressure 134/76 07/15/22 18:41 Pulse Oximetry 96 07/15/22 18:41 Oxygen Delivery Me thod Room Air 07/15/22 15:50 MDM - URI/Sore Throat Medical Decision Making Patient presents to the ER with complaints of chest pain cough fever times last 3 days. Upon history and physical exam lab work was obtained and chest x-ray that showed right hilar atelectasis versus minimal infiltrate. Patient refused COVID and influenza swabs at this time she says that all you care about I do not have them. Patient was getting tested to the staff patient will be discharged on Augmentin and told to follow-up with her family doc within the next 1 week. Medical Records I reviewed the patient's medical records. Lab Data I reviewed the patient's lab results. 07/15/22 17:34 07/15/22 17:34 Radiology Impressions Chest X-Ray 07/15/22 17:10 IMPRESSION: 1. Right hilar atelectasis versus minimal infiltrate. 2. Cardiomegaly. Laboratory Results WBC 3.4 10^3/uL (4.0-10.0) L 07/15/22 17:34 RBC 4.77 10^6/uL (4.1-5.3) 07/15/22 17:34 Hgb 14.1 g/dL (11.5-15.3) 07/15/22 17:34 Hct 42.9 % (37.0-47.0) 07/15/22 17:34 MCV 89.9 fl (81-99) 07/15/22 17:34 MCH 29.6 pg (28.0-34.0) 07/15/22 17:34 MCHC 32.9 g/dL (30.0-36.0) 07/15/22 17:34 RDW 12.9 % (12.1-15.1) 07/15/22 17:34 Plt Count 137 10^3/cmm (130-400) 07/15/22 17:34 MPV 9.3 fL (7.4-10.4) 07/15/22 17:34 Neut % (Auto) 41.3 % 07/15/22 17:34 Lymph % (Auto) 45.0 % 07/15/22 17:34 [place] % (Auto) 10.4 % 07/15/22 17:34 Eos % (Auto) 2.1 % 07/15/22 17:34 Baso % (Auto) 0.6 % 07/15/22 17:34 Neut # (Auto) 1.40 10^3/uL (1.8-7.7) L 07/15/22 17:34 Lymph # (Auto) 1.5 10^3/uL (0.8-4.8) 07/15/22 17:34 [place] # (Auto) 0.4 10^3/uL (0.2-0.9) 07/15/22 17:34 Eos # (Auto) 0.1 10^3/uL (0.0-0.8) 07/15/22 17:34 Baso # (Auto) 0.0 10^3/uL (0.0-0.1) 07/15/22 17:34 Nucleated RBC % (auto) 0 % 07/15/22 17:34 Nucleated RBCs # 0.0 /100WBC 07/15/22 17:34 Sodium 139 mmol/L (136-145) 07/15/22 17:34 Potassium 3.8 mmol/L (3.5-5.1) 07/15/22 17:34 Chloride 104 mmol/L (98-107) 07/15/22 17:34 Carbon Dioxide 22 mmol/L (22-29) 07/15/22 17:34 Anion Gap 16.8 (5-19) 07/15/22 17:34 BUN 8 mg/dL (6-20) 07/15/22 17:34 Creatinine 0.5 mg/dL (0.5-0.9) 07/15/22 17:34 GFR Calculation 130.6 mL/min (90-130) H 07/15/22 17:34 Glucose 98 mg/dL (65-115) 07/15/22 17:34 Calculated Osmolality 286 mOsm/kg (285-295) 07/15/22 17:34 Calcium 8.6 mg/dL (8.5-10.5) 07/15/22 17:34 Total Bilirubin 0.2 mg/dL (0.15-1.2) 07/15/22 17:34 AST 60 U/L (0-32) H 07/15/22 17:34 ALT 59 U/L (0-33) H 07/15/22 17:34 Alkaline Phosphatase 91 U/L (35-105) 07/15/22 17:34 NT-Pro-B Natriuret Pep 36 pg/mL (0-125) 07/15/22 17:34 Total Protein 7.1 g/dL (6.6-8.7) 07/15/22 17:34 Albumin 3.9 g/dL (3.5-5.2) 07/15/22 17:34 Globulin 3.2 g/dL (1.3-4.6) 07/15/22 17:34 Discharge Plan Discharge Patient Disposition: Home Clinical Impression: Pneumonia Condition: Stable Prescriptions: New amoxicillin-pot clavulanate 875-125 mg tablet 1 tab PO Q12H Qty: 20 0RF No Action omeprazole 20 mg capsule,delayed release(DR/EC) 20 mg PO BID Qty: 60 2RF triamcinolone acetonide 0.1 % cream 1 applic topical BID 10 Days Qty: 80 0RF (DME) Inraoperative Neuromonitoring See Rx Instructions .Route .MEDSUPPLY Qty: 1 0RF Rx Instructions: As directed cholecalciferol (vitamin D3) 1,250 mcg (50,000 unit) capsule 50,000 unit PO .WEEKLY Qty: 12 0RF Rx Instructions: TAKE 1 CAPSULE 1 TIME WEEKLY lisinopril 20 mg tablet See Rx Instructions .ROUTE .COMPLEX Qty: 90 1RF Dose Instruction: TAKE ONE TABLET BY MOUTH DAILY Rx Instructions: TAKE ONE TABLET BY MOUTH DAILY ondansetron HCl 4 mg tablet See Rx Instructions .ROUTE .COMPLEX Qty: 30 0RF Dose Instruction: TAKE ONE TABLET BY MOUTH FOUR TIMES DAILY NEEDED FOR NAUSEA AND VOMITING Rx Instructions: TAKE ONE TABLET BY MOUTH FOUR TIMES DAILY NEEDED FOR NAUSEA AND VOMITING duloxetine 30 mg capsule,delayed release(DR/EC) See Rx Instructions .ROUTE .COMPLEX Qty: 90 0RF Dose Instruction: TAKE ONE CAPSULE BY MOUTH DAILY Rx Instructions: TAKE ONE CAPSULE BY MOUTH DAILY diclofenac sodium 75 mg tablet,delayed release (DR/EC) See Rx Instructions .ROUTE .COMPLEX Qty: 60 1RF Dose Instruction: TAKE ONE TABLET BY MOUTH TWICE DAILY NEEDED FOR PAIN Rx Instructions: TAKE ONE TABLET BY MOUTH TWICE DAILY NEEDED FOR PAIN acetaminophen 650 mg Tablet 650 mg PO Q4H PRN (Reason: Pain) Discharge Orders: Discharge ED (Routine); Ordered 07/15/22 Ordered By: Singh Almanza Referrals: Maria Victoria Echavarria FNP [Primary Care Provider] - 1 week Patient Instructions: Pneumonia (ED) Coding Level of Care Code ED Linux Devops Engineer for Dinah Brewer
--- NOTE | 2022-07-15 17:10 | XRR_ITS ---
PROCEDURE INFORMATION: Exam: XR Chest Exam date and time: 07/15/2022 5:38 PM Age: 52 years old Clinical indication: Pain; Chest pressure; Additional info: Chest pain cough TECHNIQUE: Imaging protocol: Radiologic exam of the chest. Views: 1 view. COMPARISON: CR XR chest 1V [id number] 11/22/2018 2:35 PM FINDINGS: Lungs: Right hilar atelectasis versus minimal infiltrate. Pleural spaces: Unremarkable. No pleural effusion. No pneumothorax. Heart/Mediastinum: Cardiomegaly. Bones/joints: Unremarkable. XR/XR chest 1V portable [id number] IMPRESSION: 1. Right hilar atelectasis versus minimal infiltrate. 2. Cardiomegaly.
--- NOTE | 2022-07-15 17:25 | PC.NURSE ---
Pt refused swabs, states I don't have that Covid, that's all this place thinks about . I explained to pt that we also want to check for influenza and pt states well I might have that but I ain't having anything stuck up my nose, I'll do a chest xray or just go home .
--- NOTE | 2022-07-15 17:36 | PC.NURSE ---
Pt placed on bedside cardiac specialist
[2022-07-15 17:45] LABS: Basophils % 0.6 %; Eosinophils # 0.1 10^3/uL (0.0-0.8); Eosinophils % 2.1 %; Hematocrit 42.9 % (37.0-47.0); Hemoglobin 14.1 g/dL (11.5-15.3); Lymphocytes # 1.5 10^3/uL (0.8-4.8); Mean Corpuscular HGB Conc 32.9 g/dL (30.0-36.0); Mean Corpuscular Hemoglobin 29.6 pg (28.0-34.0); Mean Corpuscular Volume 89.9 fl (81-99); Mean Platelet Volume 9.3 fL (7.4-10.4); Monocytes # 0.4 10^3/uL (0.2-0.9); Monocytes % 10.4 %; Neutrophils % 41.3 %; Nucleated Red Blood Cells % 0 %; Platelet Count 137 10^3/cmm (130-400); Red Blood Count 4.77 10^6/uL (4.1-5.3); Red Cell Distribution Width 12.9 % (12.1-15.1); White Blood Count 3.4 10^3/uL (4.0-10.0)
[2022-07-15 18:11] LABS: Alanine Aminotransferase 59 U/L (0-33); Albumin Level 3.9 g/dL (3.5-5.2); Alkaline Phosphatase 91 U/L (35-105); Anion Gap 16.8 (5-19); Aspartate Amino Transferase 60 U/L (0-32); Blood Urea Nitrogen 8 mg/dL (6-20); Calcium 8.6 mg/dL (8.5-10.5); Carbon Dioxide 22 mmol/L (22-29); Chloride 104 mmol/L (98-107); Globulin 3.2 g/dL (1.3-4.6); Glomerular Filtration Rate 130.6 mL/min (90-130); Glucose 98 mg/dL (65-115); NT Pro B Type Natriuretic Pept 36 pg/mL (0-125); Osmolality Calculated 286 mOsm/kg (285-295); Potassium 3.8 mmol/L (3.5-5.1); Sodium 139 mmol/L (136-145); Total Bilirubin 0.2 mg/dL (0.15-1.2); Total Protein 7.1 g/dL (6.6-8.7)
[2022-07-15 18:17] VITALS: BP 140/74; PULSE 57; O2SAT 94
[2022-07-15 18:41] VITALS: BP 134/76; PULSE 60; O2SAT 96
== END 2022-07-15 19:12 | disposition home or self-care (01) ==
PROVIDERS: Emergency Provider Emergency Medicine; PCP Nurse Practitioner Family
DX: J18.9 Pneumonia, unspecified organism (principal); Z87.891 Personal history of nicotine dependence; I10 Essential (primary) hypertension
CPT/HCPCS: 71045; 80053; 83880; 85025; 93005; 99285

== ENCOUNTER 2022-10-09 11:28 | Outpatient (CLI) | payer MEDICAID, SELFPAY ==
--- NOTE | 2022-10-09 11:37 | XRR_ITS ---
PROCEDURE INFORMATION: Exam: XR Lumbosacral Spine Exam date and time: 10/09/2022 11:41 AM Age: 52 years old Clinical indication: Low back pain; Prior surgery; Surgery date: 6+ months; Surgery type: Spine; Patient HX: Back and neck pain. Two ap to demonstrate the hardware; Additional info: M54.50 - low back pain, unspecified TECHNIQUE: Imaging protocol: Radiologic exam of the lumbosacral spine. Views: 2 or 3 views. COMPARISON: CR XR lumbar spine 2-3V* [id number] 02/26/2022 10:25 AM FINDINGS: Bones/joints: There is stable intact posterior metallic fusion hardware with an intervening disc spacer at L4-L5. There is stable mild anterolisthesis of L4 on L5. There is a mild levocurvature. Minor degenerative changes are seen at the L1 , L2, and L3 levels. Soft tissues: Unremarkable. XR/XR lumbar spine 2-3V* [id number] IMPRESSION: Stable lumbar spine.
--- NOTE | 2022-10-09 11:37 | XRR_ITS ---
PROCEDURE INFORMATION: Exam: XR Cervical Spine Exam date and time: 10/09/2022 11:41 AM Age: 52 years old Clinical indication: Pain; Cervicalgia; Additional info: M54.2 - cervicalgia TECHNIQUE: Imaging protocol: Radiologic exam of the cervical spine. Views: 2 or 3 views. COMPARISON: CT cervical spin wo con* [id number] 11/22/2018 3:02 PM FINDINGS: Bones/joints: No fracture or other acute abnormality. Alignment is normal. Disc space heights are well preserved. Anterior marginal osteophytes are seen at C6. Soft tissues: Unremarkable. XR/XR cervical spine 3V* [id number] IMPRESSION: No acute findings.
[2022-10-09] MEDS: perflutren protein-a microsphr 0.22 mg/mL SDV 3 mL IV (12:43)
--- NOTE | 2022-10-09 13:00 | USCV_ITS ---
Danielle Badillo Age: 52 Gender: F : 1970 Exam Date: 10/09/2022 12:16 Ordering Phys: Yola Mercado Technologist: BETSEY [place] [facility] [place]ication: SHORTNESS OF BREATH BP: 128 / 64 HR: 55 Rhythm: Sinus Technical Quality: Adequate MEASUREMENTS (Male / Female) Normal Values 2D ECHO LVOT Diameter 2.0 cm LV Ejection Fraction MOD 2C 59.4 % LV Ejection Fraction 2C AL 58.9 % LA Diameter 3.3 cm LA Width 3.0 cm LA Height 4.0 cm RA Width 3.7 cm RA Height 3.5 cm Aorta at Sinotubular Diameter 2.2 cm M-MODE Aortic Annulus Diameter 2.9 cm LA Ao Ratio MM 1.1 MV E Point Septal Separation 0.7 cm DOPPLER AV Peak Velocity 133.0 cm/s LVOT Peak Velocity 127.0 cm/s AV Area Cont Eq vti 2.6 cm squared AV Area Cont Eq pk 3.1 cm squared MV Peak Velocity 111.0 cm/s MV Area PHT 3.2 cm squared Mitral E to A Ratio 1.3 MV E' Velocity 96.0 cm/s TR Peak Velocity 146.3 cm/s TR Peak Gradient 8.6 mmHg TR Mean Velocity 112.4 cm/s TR Mean Gradient 5.7 mmHg TR Velocity Time Integral 42.2 cm TV Peak E Velocity 64.0 cm/s Right Atrial Pressure 8.0 mmHg Pulmonary Artery Systolic Pressu 16.6 mmHg PV Peak Velocity 114.0 cm/s RV Acceleration Time 0.2 s RV Ejection Time 0.4 s RV AcT/ET 0.4 FINDINGS Left Ventricle Left ventricle is normal in size. LV systolic function is normal with EF of 55 to 60%. No regional wall motion abnormalities are seen. Right Ventricle Normal in size and function Right Atrium Normal size Left Atrium Normal in size Mitral Valve Structurally normal mitral valve. Trace mitral regurgitation. Aortic Valve Grossly normal. No significant stenosis. Mild aortic regurgitation. Tricuspid Valve Mild tricuspid regurgitation. Insufficient TR jet to calculate RVSP. Pulmonic Valve Not well visualized Pericardium Normal Aorta Normal in size IVC Appears to be normal CONCLUSIONS Technically limited quality echocardiogram because of poor ultrasonic windows. LV systolic function is normal with EF 55 to 60%. Trace mitral regurgitation. Mild aortic regurgitation. Mild tricuspid regurgitation. Compared to prior echocardiogram from 2019, no significant changes are seen Javier Cevallos MD (Electronically Signed) Final Date: 17 October 2022 16:52 S
== END 2022-10-09 11:29 | disposition home or self-care (01) ==
LOC: RAD 11:31
PROVIDERS: PCP Nurse Practitioner Family; Referring Provider Nurse Practitioner Family; Visit Provider Nurse Practitioner Family
DX: I08.3 Combined rheumatic disorders of mitral, aortic and tricuspid valves (principal); M54.50 Low back pain, unspecified; M54.2 Cervicalgia; G89.29 Other chronic pain; R07.9 Chest pain, unspecified; R06.09 Other forms of dyspnea
CPT/HCPCS: 72040; 72100; C8929; Q9956

== ENCOUNTER → 2023-02-10 14:55 | Outpatient (BNVA) | payer MEDICAID, SELFPAY | PROVIDERS: PCP Nurse Practitioner Family; Referring Provider Nurse Practitioner Family; Visit Provider Surgery | DX: R19.7 Diarrhea, unspecified (principal) | CPT/HCPCS: 80053; 84443; 85025; 86140 ==

== ENCOUNTER → 2023-02-12 09:24 | Outpatient (BNVA) | payer MEDICAID, SELFPAY | PROVIDERS: PCP Nurse Practitioner Family; Visit Provider Nurse Practitioner Family | DX: R19.7 Diarrhea, unspecified (principal) | CPT/HCPCS: 83630; 83993; 87045; 87177; 87209; 87338; 87427; 87449; 87493 ==

== ENCOUNTER → 2023-02-13 07:50 | Outpatient (BNVA) | payer MEDICAID, SELFPAY | PROVIDERS: PCP Nurse Practitioner Family; Visit Provider Nurse Practitioner Family | DX: R19.7 Diarrhea, unspecified (principal) | CPT/HCPCS: 82272 ==

== ENCOUNTER 2023-04-17 06:12 | Day surgery (SDC) | payer MEDICAID, SELFPAY ==
[2023-04-17 06:33] VITALS: BP 133/96; PULSE 52; RESP 18; TEMP 36.5; O2SAT 94; BMI 38.6
[2023-04-17] MEDS: sodium chloride 0.9% 1,000 ML 30 ML IV (06:43)
--- NOTE | 2023-04-17 06:48 | P.HPUD_ITS ---
Surgery/Procedure H&P Update DATE OF PROCEDURE: April 17, 2023 DATE H&P PERFORMED: 04/16/23 H&P UPDATE INFORMATION: I have reviewed H&P completed within last 30 days, I have examined patient prior to procedure, No changes to prior documentation and H&P is in [facility] [place] EMR on date indicated PLANNED PROCEDURE: Operation Date: 04/17/23 07:35 Pro[place] Procedures p [id number] egd R10.13(Not Applicable) - Maurilio Allison MD
--- NOTE | 2023-04-17 06:48 | W.PM.OPSUD ---
Surgery/Procedure H&P Update DATE OF PROCEDURE: April 17, 2023 DATE H&P PERFORMED: 04/16/23 H&P UPDATE INFORMATION: I have reviewed H&P completed within last 30 days, I have examined patient prior to procedure, No changes to prior documentation and H&P is in [facility] [place] EMR on date indicated PLANNED PROCEDURE: Operation Date: 04/17/23 07:35 Proposed Procedures p [id number] egd R10.13(Not Applicable) - Maurilio Allison MD
--- NOTE | 2023-04-17 06:55 | ANES.PREANE2 ---
Pre-Anesthetic Assessment Height/Weight: Height 1.63 m Weight 102.058 kg Temp Pulse Resp BP Pulse Ox O2 Del Method 97.7 F 52 L 18 133/96 94 Room Air 04/17/23 06:33 04/17/23 06:33 04/17/23 06:33 04/17/23 06:33 04/17/23 06:33 04/17/23 06:33 Preop Diagnosis: nausea and vomiting Operation Date: 04/17/23 07:35 Proposed Procedures p [id number] egd R10.13(Not Applicable) - Maurilio Allison MD Familial anesthetic complications: None Was Beta Jeff taken within 24 hours: N/A Was Clonidine taken within 24 hours: N/A Last intake: Intake Last Liquid Date 04/16/23 Last Liquid Time 21:00 Last Solid Date 04/16/23 Last Solid Time 18:00 Social Tobacco 1.5 pack(s) per day 30 pack years quit 1 year ago Exam alert, oriented x 3 and clear to auscultation bilaterally Airway Submandibular: within normal limits Cervical ROM: within normal limits Mallampati: Class III Dentition: full History/ROS No significant history except as noted Pulmonary Sleep Apnea Dosent use her CPAP at home CV/HEM Arrythmia and Hypertension MVR None reported Hepatic None reported GI Gastroesophageal Reflux Disease well controlled with meds Metabolic None reported Musc/skel Lower Back Pain and Osteoarthritis/DJD Anesthetic Plan ASA status: 2 Anesthesia: Anesthesia Evaluation and MAC Risk of > 500 ml blood loss (7ml/kg in children): No Medications/Allergies Home Medications Medication Instructions Recorded Confirmed Last Taken Type aspirin 81 mg tablet,delayed 81 mg PO DAILY 10/09/22 04/15/23 04/13/23 History release (Adult Aspirin Regimen) pantoprazole 40 mg tablet,delayed 40 mg PO DAILY #30 tabs 03/28/23 04/15/23 04/14/23 Rx release gabapentin 300 mg capsule 300 mg PO DAILY 04/15/23 04/15/23 04/16/23 History lisinopril 20 mg tablet 20 mg PO DAILY 04/15/23 04/15/23 04/15/23 History ondansetron HCl 4 mg tablet 4 mg PO DAILY PRN Nausea And 04/15/23 04/15/23 04/16/23 History Vomiting Allergies Allergy/AdvReac Type Severity Reaction Status Date / Time No Known Allergies Allergy Verified 04/17/23 06:31 Current Medications Generic Name Dose Route Start Last Admin Trade Name Freq PRN Reason Stop Dose Admin Sodium Chloride 1,000 mls @ 30 mls/hr 04/17/23 06:30 04/17/23 06:43 Sodium Chloride 0.9% IV 04/18/23 06:29 30 mls/hr .Q24H PERI Administration PFSH Anesthesia Medical History Colon polyps High risk medication use Degenerative joint disease (DJD) of lumbar spine Inflammatory arthritis Obstructive sleep apnea Hypertension Surgical History Status post colonoscopy (08/29/21) S/P excision of lipoma (11/15/20) Left arm Status post hysteroscopy 08/10/2020---hy[place] [facility] [place] At time of hysteroscopy 3 endometrial polyps were noted and removed-bilateral ostia visualized-no other pathology seen. Pathology showed benign endometrial polyps with fragments of myometrium, no atypia hyperplasia or malignancy identified Status post tubal ligation 1996 at time of second History of cholecystectomy 1993--laparoscopic procedure History of delivery x2 ----->1996 Family History Mother Heart disease Hypertension Hyperlipidemia Father Heart disease Hypertension Hyperlipidemia Sister Heart disease Thyroid disease Hypertension Hyperlipidemia Brother Heart disease Hypertension Hyperlipidemia Other Lupus Rheumatoid arthritis Denies family history of Colon cancer Ovarian cancer Diabetes Breast cancer Lung disease Uterine cancer Stroke Social History Smoking and tobacco/nicotine status: former use of tobacco/nicotine Quit status (tobacco/nicotine): has quit using Year quit tobacco: 01/2022 Second hand smoke exposure: Yes Alcohol intake: never Substance/Drug Use: never Caregiver/support person: Yes Lives independently: Yes Household members: spouse Housing: House Marital status: service: No Current occupational status: disabled Current gender identity: Female Special jonathan needs: No Agree to transfusion: Yes Data Anesthesia Cardiac Studies: Echocardiogram 10/09/22 Cardiac Event Monitor 07/29/22
[2023-04-17 08:09] VITALS: BP 132/74; PULSE 98; RESP 14; TEMP 36.2; O2SAT 91
[2023-04-17 08:23] VITALS: BP 138/95; PULSE 71; RESP 16; O2SAT 94
--- NOTE | 2023-04-17 14:12 | P.PCN_ITS ---
PACU note Narrative: no anesthetic complications noted
--- NOTE | 2023-04-17 14:12 | PM.PACU ---
PACU note Narrative: no anesthetic complications noted
--- NOTE | 2023-04-17 14:12 | ANE.PACU2 ---
Inpatient post-anesthesia follow up: Vital signs: Temperature 97.2 F Pulse Rate 71 Respiratory Rate 16 Blood Pressure 138/95 Pulse Oximetry 94 Oxygen Delivery Me thod Room Air Oxygen Flow Rate Fraction of Inspir ed Oxygen Hydration adequate: Yes Nausea and vomiting: No Pain level: 1 Mental status: Baseline
== END 2023-04-17 08:49 | disposition home or self-care (01) ==
PROVIDERS: PCP Nurse Practitioner Family; Visit Provider Surgery
PROC: 0DJ08ZZ Inspection of Upper Intestinal Tract, Via Natural or Artificial Opening Endoscopic (ICD-10-PCS; CPT 43235; principal; 2023-04-17 07:35)
DX: R10.13 Epigastric pain (principal); K29.50 Unspecified chronic gastritis without bleeding; G47.30 Sleep apnea, unspecified; I10 Essential (primary) hypertension; Z79.82 Long term (current) use of aspirin; G47.33 Obstructive sleep apnea (adult) (pediatric); Z87.891 Personal history of nicotine dependence
CPT/HCPCS: 43239; 88305; 88342; J2405; J2704; J3490; J7030

== ENCOUNTER 2023-04-17 10:29 | Outpatient (CLI) | payer MEDICAID, SELFPAY ==
--- NOTE | 2023-04-17 10:32 | MM_ITS ---
WS: [id number] BILATERAL SCREENING DIGITAL TOMOSYNTHESIS MAMMOGRAM WITH CAD HISTORY: SCREENING COMPARISON: 09/11/2021 and 08/03/2020 Bilateral CC and MLO views with tomosynthesis and synthetic mammography submitted. Computer aided det ection analyzed. Breast composition: There are scattered areas of fibroglandular density. No suspicious masses, microc alcifications or architectural distortion. Benign calcifications in each breast. IMPRESSION: MM/[place] [id number] BI-RADS: 2-Benign FOLLOW UP: 1 Year Follow-up
== END 2023-04-17 10:30 | disposition home or self-care (01) ==
LOC: RAD 10:29
PROVIDERS: PCP Nurse Practitioner Family; Visit Provider Nurse Practitioner Family
DX: Z12.31 Encounter for screening mammogram for malignant neoplasm of breast (principal); R92.323 Mammographic fibroglandular density, bilateral breasts; R92.1 Mammographic calcification found on diagnostic imaging of breast
CPT/HCPCS: 77063; 77067

== ENCOUNTER 2023-06-25 07:52 | Outpatient (CLI) | payer MEDICAID, SELFPAY ==
--- NOTE | 2023-06-25 08:15 | US_ITS ---
WS: [id number] ULTRASOUND SOFT TISSUES LEFT upper extremity. HISTORY: Z86.018 - Personal history of other benign neoplasm COMPARISON: 07/18/2020 TECHNIQUE: 2-D and color Doppler imaging is submitted. Ultrasound is directed to the area of interest by the patient. The soft tissues appear appropriate. T here is no mass or displacement of the soft tissues. No solid or cystic mass. IMPRESSION: Negative ultrasound LEFT upper extremity in the area of interest.
== END 2023-06-25 07:53 | disposition home or self-care (01) ==
LOC: RAD 07:52
PROVIDERS: PCP Nurse Practitioner Family; Visit Provider Nurse Practitioner Family
DX: M79.602 Pain in left arm (principal); M79.89 Other specified soft tissue disorders; Z86.018 Personal history of other benign neoplasm
CPT/HCPCS: 76882

== ENCOUNTER 2023-11-07 14:08 | Observation (INO) | payer MEDICAID, SELFPAY ==
[2023-11-07] VITALS (18 sets, daily range): BP systolic 113–180; BP diastolic 50–93; PULSE 43–90; RESP 12–23; TEMP 36.6–36.8; O2SAT 92–98; BMI 39.4
--- NOTE | 2023-11-07 14:10 | XR_ITS ---
WS: [id number] Exam: XR chest 1V portable [id number] Date/Time of Exam: 11/07/2023 2:18 PM Reason For Exam: cp Comparison 07/17/2022. The lungs are clear and fully expanded. Normal cardiomediastinal silhouette. No pleural effusions. Un remarkable bony elements. XR/XR chest 1V portable [id number] IMPRESSION: 1. No acute cardiopulmonary finding.
--- NOTE | 2023-11-07 14:10 | ECG_ITS ---
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 Measurements Intervals [place] Rate: 40 P: 53 [place]: 153 QRS: 10 QRSD: 94 T: 27 QT: 464 QTc: 382 Interpretive Statements SINUS BRADYCARDIA LOW QRS VOLTAGE IN PRECORDIAL LEADS [QRS DEFLECTION < 1.0 mV IN CHEST LEADS] CRITICAL TEST RESULT Compared to ECG 07/15/2022 15:56:35 Bradycardia, nonsinus no longer present Indeterminate axis no longer present Myocardial infarct finding no longer present Electronically Signed On 11-07-2023 18:17:58 CDT by Deja Jean M.D. [id number]
[2023-11-07 14:50] LABS: Basophils % 0.4 %; Eosinophils # 0.1 10^3/uL (0.0-0.8); Eosinophils % 1.6 %; Hematocrit 43.3 % (36-47); Lymphocytes # 2.6 10^3/uL (0.8-4.8); Lymphocytes % 39.1 %; Mean Corpuscular HGB Conc 33.9 g/dL (30-55); Mean Corpuscular Hemoglobin 30.8 pg (27-33); Mean Corpuscular Volume 90.8 fl (85-98); Monocytes # 0.5 10^3/uL (0.2-0.9); Monocytes % 6.9 %; Neutrophils # 3.44 10^3/uL (1.8-7.7); Neutrophils % 51.6 %; Nucleated Red Blood Cells % 0 %; Platelet Count 159 10^3/cmm (157-399); Red Blood Count 4.77 10^6/uL (3.85-5.65); Red Cell Distribution Width 12.7 % (12.1-15.1); White Blood Count 6.68 10^3/uL (3.29-11.43)
--- NOTE | 2023-11-07 14:58 | ED_ITS ---
HPI - Chest Pain 2 General: Chief Complaint: Chest Pain Stated Complaint: cp Time Seen by Provider: 11/07/23 14:40 Source: patient and EMS Mode of arrival: EMS Limitations: no limitations History of Present Illness: 53-year-old female states been having ch est pain since yesterday. States has been intermittent in nature denies any worse or improving factors patient was given aspirin and nitro and route she denies any pain currently she has had no cough no fever no shortness of breath Associated symptoms: Deny abdominal pain, dyspnea, fever(s), nausea or vomiting Related Data Home Medications Medication Instructions Recorded Confirmed aspirin 81 mg tablet,delayed 81 mg PO DAILY 10/09/22 08/25/23 release (Adult Aspirin Regimen) Previous Rx's Medication Instructions Recorded lisinopril 20 mg tablet See Rx Instructions .Route 05/01/23 .COMPLEX #90 tabs ondansetron HCl 4 mg tablet See Rx Instructions .Route 05/01/23 .COMPLEX #30 tabs gabapentin 300 mg capsule See Rx Instructions .Route 06/09/23 .COMPLEX #60 caps pantoprazole 40 mg tablet,delayed See Rx Instructions .Route 06/09/23 release .COMPLEX #30 tabs cephalexin 500 mg capsule 500 mg PO TID #21 caps 06/20/23 diclofenac sodium 75 mg See Rx Instructions .Route 07/07/23 tablet,delayed release .COMPLEX #60 tabs Allergies Allergy/AdvReac Type Severity Reaction Status Date / Time No Known Allergies Allergy Verified 11/07/23 14:28 Review of Systems 2 Const: Denies: fever(s), chills, body aches or change in appetite ENMT: Denies: throat pain or dental pain Card: Reports: chest pain Resp: Denies: dyspnea GI: Denies: abdominal pain, nausea, vomiting or diarrhea Musc: Denies: neck pain or back pain Skin/Breast: Denies: rash Neuro: Denies: headache(s) PFSH ED 2 PFSH: Medical History Colon polyps High risk medication use Degenerative joint disease (DJD) of lumbar spine Inflammatory arthritis Obstructive sleep apnea Hypertension Surgical History Status post colonoscopy (08/29/21) S/P excision of lipoma (11/15/20) Left arm Status post hysteroscopy 08/10/2020---hysteroscopy, D&C polypectomy by Dr. Medina at [facility] [place]. At time of hysteroscopy 3 endometrial polyps were noted and removed-bilateral ostia visualized-no other pathology seen. Pathology showed benign endometrial polyps with fragments of myometrium, no atypia hyperplasia or malignancy identified Status post tubal ligation 1996 at time of second History of cholecystectomy 1993--laparoscopic procedure History of delivery x2 ----->1996 Family History Mother Heart disease Hypertension Hyperlipidemia Father Heart disease Hypertension Hyperlipidemia Sister Heart disease Thyroid disease Hypertension Hyperlipidemia Brother Heart disease Hypertension Hyperlipidemia Other Lupus Rheumatoid arthritis Denies family history of Colon cancer Ovarian cancer Diabetes Breast cancer Lung disease Uterine cancer Stroke Social History Smoking and tobacco/nicotine status: former use of tobacco/nicotine Quit status (tobacco/nicotine): has quit using Year quit tobacco: 01/2022 Second hand smoke exposure: Yes Alcohol intake: never Substance/Drug Use: never Caregiver/support person: Yes Lives independently: Yes Household members: spouse Housing: House Marital status: service: No Current occupational status: disabled Current gender identity: Female Special jonathan needs: No Agree to transfusion: Yes Physical Exam 2 Const: COMMON NORMALS: no acute distress, patient oriented x3 and healthy appearing HENMT: COMMON NORMALS: normocephalic and atraumatic HEAD & SCALP: n ormocephalic and atraumatic Eye: COMMON NORMALS: Equal, round and reactive pupils present and EOMs intact bilaterally PUPIL: Yes Equal, round and reactive pupils present Neck/C-Spine: COMMON NORMALS: full ROM and supple Chest: COMMONS NORMALS: normal inspection of the chest and normal palpation of entire chest wall Resp: COMMON NORMALS: normal respiratory effort, No retractions, No use of accessory muscles and clear to auscultation bilaterally AUSCULTATION: clear to auscultation bilaterally Cardio: COMMON NORMALS: regular rhythm and No murmurs present (Cardio) R HYTHM: regular rhythm GI: COMMON NORMALS: Normal to inspection, nondistended, normoactive bowel sounds present, Soft to palpation, non-tender and no masses PALPATION: Yes Soft to palpation Extremity: COMMON NORMALS: normal to inspection and full ROM Neuro: COMMON NORMALS: patient oriented x3, moves all extremities and no focal motor deficits Psych: COMMON NORMALS: mental status grossly normal, Normal thought process present and cooperative THOUGHT PROCESS: Normal thought process present Skin: COMMON NORMALS: no rashes or lesions noted and no wounds GENERAL SKIN EXAM: no rashes or lesions noted Course 2 Vital Signs: Vital signs: Vital Signs Temperature 98.3 F 11/07/23 14:20 Pulse Rate 48 L 11/07/23 15:45 Respiratory Rate 14 11/07/23 15:45 Blood Pressure 180/93 11/07/23 15:45 Pulse Oximetry 97 11/07/23 15:45 Oxygen Delivery Me thod Room Air 11/07/23 14:20 MDM - Chest Pain Medical Decision Making Patient presents for chest pain for last 2 days she has a history of hypertension former smoker strong family history of heart disease. She has had sinus bradycardia here she is consistently been in the 40s states she gets lightheaded with ambulation as well. I spoke to hospitalist and will admit at this time. Medical Records I reviewed the patient's medical records. Lab Data I reviewed the patient's lab results. 11/07/23 14:43 11/07/23 14:43 Radiology Impressions Chest X-Ray 11/07/23 14:10 IMPRESSION: 1. No acute cardiopulmonary finding. Laboratory Results WBC 6.68 10^3/uL (3.29-11.43) 11/07/23 14:43 RBC 4.77 10^6/uL (3.85-5.65) 11/07/23 14:43 Hgb 14.70 g/dL (11.27-16.99) 11/07/23 14:43 Hct 43.3 % (36-47) 11/07/23 14:43 MCV 90.8 fl (85-98) 11/07/23 14:43 MCH 30.8 pg (27-33) 11/07/23 14:43 MCHC 33.9 g/dL (30-55) 11/07/23 14:43 RDW 12.7 % (12.1-15.1) 11/07/23 14:43 Plt Count 159 10^3/cmm (157-399) 11/07/23 14:43 MPV 10.0 fL (7.4-10.4) 11/07/23 14:43 Neut % (Auto) 51.6 % 11/07/23 14:43 Lymph % (Auto) 39.1 % 11/07/23 14:43 [place] % (Auto) 6.9 % 11/07/23 14:43 Eos % (Auto) 1.6 % 11/07/23 14:43 Baso % (Auto) 0.4 % 11/07/23 14:43 Neut # (Auto) 3.44 10^3/uL (1.8-7.7) 11/07/23 14:43 Lymph # (Auto) 2.6 10^3/uL (0.8-4.8) 11/07/23 14:43 [place] # (Auto) 0.5 10^3/uL (0.2-0.9) 11/07/23 14:43 Eos # (Auto) 0.1 10^3/uL (0.0-0.8) 11/07/23 14:43 Baso # (Auto) 0.0 10^3/uL (0.0-0.1) 11/07/23 14:43 Nucleated RBC % (auto) 0 % 11/07/23 14:43 Nucleated RBCs # 0.0 /100WBC 11/07/23 14:43 Sodium 142 mmol/L (136-145) 11/07/23 14:43 Potassium 3.7 mmol/L (3.5-5.1) 11/07/23 14:43 Chloride 107 mmol/L (98-107) 11/07/23 14:43 Carbon Dioxide 19 mmol/L (22-29) L 11/07/23 14:43 Anion Gap 19.7 (5-19) H 11/07/23 14:43 BUN 10 mg/dL (6-20) 11/07/23 14:43 Creatinine 0.6 mg/dL (0.5-0.9) 11/07/23 14:43 GFR Calculation 105.4 mL/min (90-130) 11/07/23 14:43 Glucose 120 mg/dL (65-115) H 11/07/23 14:43 Calculated Osmolality 294 mOsm/kg (285-295) 11/07/23 14:43 Calcium 9.1 mg/dL (8.5-10.5) 11/07/23 14:43 Total Bilirubin 0.3 mg/dL (0.15-1.2) 11/07/23 14:43 AST 42 U/L (0-32) H 11/07/23 14:43 ALT 39 U/L (0-33) H 11/07/23 14:43 Alkaline Phosphatase 80 U/L (35-105) 11/07/23 14:43 Troponin T Baseline < 6 ng/L (0-10) 11/07/23 14:43 Troponin T 120 Minute 6.22 ng/L (0-10) 11/07/23 16:29 Delta Troponin T 0.35197 ABS# (0-10) 11/07/23 16:29 Total Protein 6.9 g/dL (6.6-8.7) 11/07/23 14:43 Albumin 4.1 g/dL (3.5-5.2) 11/07/23 14:43 Globulin 2.8 g/dL (1.3-4.6) 11/07/23 14:43 Lipase 58 U/L (13-60) 11/07/23 14:43 All radiology interpretation(s) finalized by discharge EKG Data EKG 1: I personally reviewed and interpreted this EKG as follows: EKG interpretation date: 11/07/23 EKG interpretation time: 16:23 Interpretation: sinus sergio hr [address] elevation qrs 105 qtc 415 Discharge Plan Discharge Patient Disposition: Admitted As Inpatient Clinical Impression: Chest pain, Bradycardia Condition: Stable Prescriptions: No Action aspirin [Adult Aspirin Regimen] 81 mg tablet,delayed release (DR/EC) 81 mg PO DAILY cephalexin 500 mg capsule 500 mg PO TID Qty: 21 0RF ondansetron HCl 4 mg tablet See Rx Instructions .ROUTE .COMPLEX Qty: 30 1RF Dose Instruction: TAKE ONE TABLET BY MOUTH FOUR TIMES DAILY NEEDED FOR NAUSEA AND VOMITING Rx Instructions: TAKE ONE TABLET BY MOUTH FOUR TIMES DAILY NEEDED FOR NAUSEA AND VOMITING lisinopril 20 mg tablet See Rx Instructions .ROUTE .COMPLEX Qty: 90 0RF Dose Instruction: TAKE ONE TABLET BY MOUTH DAILY Rx Instructions: TAKE ONE TABLET BY MOUTH DAILY pantoprazole 40 mg tablet,delayed release (DR/EC) See Rx Instructions .ROUTE .COMPLEX Qty: 30 2RF Dose Instruction: TAKE ONE TABLET BY MOUTH DAILY Rx Instructions: TAKE ONE TABLET BY MOUTH DAILY gabapentin 300 mg capsule See Rx Instructions .ROUTE .COMPLEX Qty: 60 0RF Dose Instruction: TAKE ONE CAPSULE BY MOUTH TWICE DAILY Rx Instructions: TAKE ONE CAPSULE BY MOUTH TWICE DAILY diclofenac sodium 75 mg tablet,delayed release (DR/EC) See Rx Instructions .ROUTE .COMPLEX Qty: 60 1RF Dose Instruction: TAKE ONE TABLET BY MOUTH TWICE DAILY NEEDED FOR PAIN Rx Instructions: TAKE ONE TABLET BY MOUTH TWICE DAILY NEEDED FOR PAIN Referrals: Maria Victoria Echavarria FNP [Primary Care Provider] - Coding Level of Care Code ED Teacher'S Assistant for Dinah Brewer
[2023-11-07 15:10] LABS: Alanine Aminotransferase 39 U/L (0-33); Albumin Level 4.1 g/dL (3.5-5.2); Alkaline Phosphatase 80 U/L (35-105); Anion Gap 19.7 (5-19); Aspartate Amino Transferase 42 U/L (0-32); Blood Urea Nitrogen 10 mg/dL (6-20); Calcium 9.1 mg/dL (8.5-10.5); Carbon Dioxide 19 mmol/L (22-29); Chloride 107 mmol/L (98-107); Creatinine Clr Calc Pharmacy 130.5495; Globulin 2.8 g/dL (1.3-4.6); Glomerular Filtration Rate 105.4 mL/min (90-130); Glucose 120 mg/dL (65-115); Lipase 58 U/L (13-60); Osmolality Calculated 294 mOsm/kg (285-295); Potassium 3.7 mmol/L (3.5-5.1); Sodium 142 mmol/L (136-145); Total Bilirubin 0.3 mg/dL (0.15-1.2); Total Protein 6.9 g/dL (6.6-8.7)
[2023-11-07 15:12] LABS: Troponin(5th) Baseline < 6 ng/L (0-10)
--- NOTE | 2023-11-07 16:10 | ECG_ITS ---
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 Measurements Intervals Preemption Rate: 43 P: 56 OH: 171 QRS: -2 QRSD: 105 T: 22 QT: 469 QTc: 398 Interpretive Statements SINUS BRADYCARDIA LOW QRS VOLTAGE IN PRECORDIAL LEADS [QRS DEFLECTION < 1.0 mV IN CHEST LEADS] Compared to ECG 11/07/2023 14:14:46 No significant changes Electronically Signed On 11-07-2023 18:31:27 CDT by Deja Jean M.D. [id number]
[2023-11-07 17:04] LABS: Troponin 5 2HR 6.22 ng/L (0-10); Troponin 5 2HR Delta 0.22001 ABS# (0-10)
[2023-11-07 18:03] LABS: D Dimer 0.46 ug/mLFEU (0-0.59)
--- NOTE | 2023-11-07 18:12 | P.HP_ITS ---
Providers/Chief Complaint 2 Primary Care Provider: KARLOS Esquivel Chief Complaint: cp History of Present Illness Pleasant 53-year-old lady with history of obstructive sleep apnea, has not been tolerant of wearing CPAP, morbid obesity, HTN, inflammatory arthritis, former smoker, presents due to several days of worsening symptoms including worsening fatigability with exertion, lightheadedness on standing, intermittent palpitations, intermittent squeezing chest pain with palpitations, dyspnea on exertion. No lower extremity edema or orthopnea. She states she had previously had a stress test but it has been a while. I do not see any in our system. She denies any medication changes. Is not on any enmanuel blockers. Review of Systems 2 Const: Denies: fever(s), chills, body aches or malaise Card: Reports: chest pain, palpitations, lightheadedness and dyspnea on exertion; Denies: edema Resp: Reports: non-productive cough (mild); Denies: dyspnea, productive cough, change in phlegm color or hemoptysis GI: Denies: abdominal pain, nausea, vomiting, diarrhea, constipation, hematochezia or melena : Denies: flank pain, urinary frequency or hematuria Musc: Denies: back pain, joint swelling or joint redness Skin/Breast: Denies: rash or new lesions Neuro: Denies: headache(s), numbness in extremities, weakness in extremities, dizziness, confusion or seizure-like activity Medications/Allergies Home Medications Medication Instructions Recorded Confirmed Last Taken Type aspirin 81 mg tablet,delayed 81 mg PO DAILY 10/09/22 08/25/23 04/13/23 History release (Adult Aspirin Regimen) lisinopril 20 mg tablet See Rx Instructions .Route 05/01/23 08/25/23 Unknown Rx .COMPLEX #90 tabs ondansetron HCl 4 mg tablet See Rx Instructions .Route 05/01/23 08/25/23 Unknown Rx .COMPLEX #30 tabs gabapentin 300 mg capsule See Rx Instructions .Route 06/09/23 08/25/23 Unknown Rx .COMPLEX #60 caps pantoprazole 40 mg tablet,delayed See Rx Instructions .Route 06/09/23 08/25/23 Unknown Rx release .COMPLEX #30 tabs cephalexin 500 mg capsule 500 mg PO TID #21 caps 06/20/23 08/25/23 Unknown Rx diclofenac sodium 75 mg See Rx Instructions .Route 07/07/23 08/25/23 Unknown Rx tablet,delayed release .COMPLEX #60 tabs Allergies Allergy/AdvReac Type Severity Reaction Status Date / Time No Known Allergies Allergy Verified 11/07/23 14:28 PFSH Acute 2 PFSH: Medical History (Updated 11/07/23 @ 18:45 by Kevin Valenzuela MD) Colon polyps High risk medication use Degenerative joint disease (DJD) of lumbar spine Inflammatory arthritis Obstructive sleep apnea Hypertension Surgical History (Updated 11/07/23 @ 18:20 by Kevin Valenzuela MD) History of back surgery Status post colonoscopy (08/29/21) S/P excision of lipoma (11/15/20) Left arm Status post hysteroscopy 08/10/2020---hy[place] [facility] [place] At time of hysteroscopy 3 endometrial polyps were noted and removed-bilateral ostia visualized-no other pathology seen. Pathology showed benign endometrial polyps with fragments of myometrium, no atypia hyperplasia or malignancy identified Status post tubal ligation 1996 at time of second History of cholecystectomy 1993--laparoscopic procedure History of delivery x2 ----->1996 Family History Mother Heart disease Hypertension Hyperlipidemia Father Heart disease Hypertension Hyperlipidemia Sister Heart disease Thyroid disease Hypertension Hyperlipidemia Brother Heart disease Hypertension Hyperlipidemia Other Lupus Rheumatoid arthritis Denies family history of Colon cancer Ovarian cancer Diabetes Breast cancer Lung disease Uterine cancer Stroke Social History Smoking and tobacco/nicotine status: former use of tobacco/nicotine Quit status (tobacco/nicotine): has quit using Year quit tobacco: 01/2022 Second hand smoke exposure: Yes Alcohol intake: never Substance/Drug Use: never Caregiver/support person: Yes Lives independently: Yes Household members: spouse Housing: House Marital status: service: No Current occupational status: disabled Current gender identity: Female Special jonathan needs: No Agree to transfusion: Yes Vitals/I&O/Wt Last Vital Signs Temp 98.3 F 11/07/23 14:20 Pulse 51 L 11/07/23 17:30 Resp 18 11/07/23 17:30 BP 118/73 11/07/23 17:30 Pulse Ox 97 11/07/23 17:30 O2 Del Method Room Air 11/07/23 14:20 Weight last 48 hrs Weight 104.326 kg Physical Exam 2 Narrative: Accompanied by family. Const: COMMON NORMALS: patient oriented x3 and alert GENERAL APPEARANCE: c ooperative NUTRITIONAL APPEARANCE: obese ORIENTATION/CONSCIOUSNESS: Yes awake HENMT: COMMON NORMALS: oropharynx normal Neck/C-Spine: COMMON NORMALS: no JVD Resp: COMMON NORMALS: normal respiratory effort and clear to auscultation bilaterally AUSCULTATION: clear to auscultation bilaterally Cardio: COMMON NORMALS: no JVD, regular rhythm, S1 normal heart sound present, S2 normal heart sound present and No murmurs present (Cardio) RATE: b radycardic RHYTHM: regular rhythm HEART SOUNDS: S1 normal heart sound present and S2 normal heart sound present GI: COMMON NORMALS: Normal to inspection, nondistended, normoactive bowel sounds present, Soft to palpation and non-tender PALPATION: Yes Soft to palpation Extremity: COMMON NORMALS: no joint enlargement and no pedal edema Neuro: COMMON NORMALS: patient oriented x3 and moves all extremities S ENSORIUM/ORIENTATION: Yes alert Skin: COMMON NORMALS: no rashes or lesions noted GENERAL SKIN EXAM: no rashes or lesions noted Data 11/07/23 14:43 11/07/23 14:43 A&P Assessment and plan (1) Bradycardia: Reviewed vitals, CBC, CMP, chest x-ray, EKG on my interpretation with sinus bradycardia, pending official read, reviewed ER note, discussed with ER provider. On the monitor variable heart rates down into the low 40s. She reports symptomatic bradycardia with some palpitations but also getting lightheaded when she is standing up, exertional intolerance, exertional dyspnea. Chest pain. Reports some intermittent numbness of the fingertips. Reviewed troponin series, so far negative at 2 hours. Chest x-ray unremarkable. She is not on any enmanuel blockers. I do not see any medications that should slow down her heart rate. Requested D-dimer, reviewed, normal. Requested TSH, requested magnesium. Obtain TTE. Complete troponin EKG series. Monitor on telemetry. With new unexplained symptomatic sinus bradycardia, chest pain, cardiovascular risk factors, discussed also with mill labor supervisor, appreciate consultation. Will obtain respiratory viral panel. She has sleep apnea, has been intolerant of CPAP. She also reports some left-sided neck pain. Will obtain CT imaging. (2) Dyspnea on exertion: At rest she is on room air 97%. She does get easily fatigued, lightheaded when she stands up. Gets short of breath with walking. Assess TTE. Assess orthostatics. Obtain respiratory viral panel. (3) Chest pain: Possibly symptomatic bradycardia. Assess for possible unstable angina. Complete troponin EKG series. Obtain TTE. Monitor on telemetry. Will give aspirin. I do not see a prior stress test. We are unable to obtain stress test this weekend. With history of cardiovascular risk factors with hypertension, obesity, sleep apnea, family history of heart disease, former smoker, discussed with mill labor supervisor, appreciate consultation. Nitroglycerin as needed, IV morphine. Plan Obstructive sleep apnea, has not been tolerant of wearing CPAP, Mild chronic transaminitis: Follow-up with PCP Morbid obesity, HTN, Lisinopril. Confirm home medications. GERD: Continue PPI Inflammatory arthritis, Former smoker Attestations 2 Medical Necessity Statement*: Place in observation for additional assessment of management of chest pain, symptomatic bradycardia, exertional intolerance, and a lady with morbid obesity, sleep apnea intolerant of treatment, additional cardiac risk factors. Diagnoses Bradycardia R00.1 Dyspnea on exertion R06.09 Chest pain R07.9
[2023-11-07 18:48] LABS: Thyroid Stimulating Hormone 3.08 uIU/mL (0.27-4.20)
--- NOTE | 2023-11-07 19:25 | P.CONIM_ITS ---
Providers/Reason For Consult 2 Consulting Physician/Specialty*: Javier Cevallos MD/ Cardiology Reason for Consult*: Chest pain/ bradycardia Attending Physician: Kevin Valenzuela Primary Care Provider: KARLOS Esquivel History of Present Illness History of Present Illness Danielle Badillo is a 53 year old female who has been having intermittent chest discomfort episodes and bradycardia. Symptoms got worse yesterday. She feels squeezing chest pain mostly on exertion however has been worsening. Currently chest pain free. EKG shows sinus bradycardia with no significant ST-T wave changes. Troponins are negative. She has a history of hypertension, strong family history of CAD, obstructive sleep apnea. Review of Systems 2 Const: Denies: fever(s), chills, body aches or malaise Card: Reports: chest pain, palpitations, lightheadedness and dyspnea on exertion; Denies: edema Resp: Reports: non-productive cough (mild); Denies: dyspnea, productive cough, change in phlegm color or hemoptysis GI: Denies: abdominal pain, nausea, vomiting, diarrhea, constipation, hematochezia or melena : Denies: flank pain, urinary frequency or hematuria Musc: Denies: back pain, joint swelling or joint redness Skin/Breast: Denies: rash or new lesions Neuro: Denies: headache(s), numbness in extremities, weakness in extremities, dizziness, confusion or seizure-like activity Medications/Allergies Home Medications Medication Instructions Recorded Confirmed Last Taken Type aspirin 81 mg tablet,delayed 81 mg PO DAILY 10/09/22 11/07/23 04/13/23 History release (Adult Aspirin Regimen) lisinopril 20 mg tablet See Rx Instructions .Route 05/01/23 11/07/23 Unknown Rx .COMPLEX #90 tabs ondansetron HCl 4 mg tablet See Rx Instructions .Route 05/01/23 11/07/23 Unknown Rx .COMPLEX #30 tabs gabapentin 300 mg capsule See Rx Instructions .Route 06/09/23 11/07/23 Unknown Rx .COMPLEX #60 caps Allergies Allergy/AdvReac Type Severity Reaction Status Date / Time No Known Allergies Allergy Verified 11/07/23 14:28 PFSH Acute 2 PFSH: Medical History Colon polyps High risk medication use Degenerative joint disease (DJD) of lumbar spine Inflammatory arthritis Obstructive sleep apnea Hypertension Surgical History History of back surgery Status post colonoscopy (08/29/21) S/P excision of lipoma (11/15/20) Left arm Status post hysteroscopy 08/10/2020---hysteroscopy, D&C polypect[place] Dr. Medina [place] [facility] [place] At time of hysteroscopy 3 endometrial polyps were noted and removed-bilateral ostia visualized-no other pathology seen. Pathology showed benign endometrial polyps with fragments of myometrium, no atypia hyperplasia or malignancy identified Status post tubal ligation 1996 at time of second History of cholecystectomy 1993--laparoscopic procedure History of delivery x2 ----->1996 Family History Mother Heart disease Hypertension Hyperlipidemia Father Heart disease Hypertension Hyperlipidemia Sister Heart disease Thyroid disease Hypertension Hyperlipidemia Brother Heart disease Hypertension Hyperlipidemia Other Lupus Rheumatoid arthritis Denies family history of Colon cancer Ovarian cancer Diabetes Breast cancer Lung disease Uterine cancer Stroke Social History Smoking and tobacco/nicotine status: former use of tobacco/nicotine Quit status (tobacco/nicotine): has quit using Year quit tobacco: 01/2022 Second hand smoke exposure: Yes Alcohol intake: never Substance/Drug Use: never Caregiver/support person: Yes Lives independently: Yes Household members: spouse Housing: House Marital status: service: No Current occupational status: disabled Current gender identity: Female Special jonathan needs: No Agree to transfusion: Yes Vitals/I&O/Wt Last Vital Signs Temp 98.3 F 11/07/23 14:20 Pulse 44 L 11/07/23 18:30 Resp 15 11/07/23 18:30 BP 147/72 11/07/23 18:30 Pulse Ox 98 11/07/23 18:30 O2 Del Method Room Air 11/07/23 14:20 Weight last 48 hrs Weight 230 lb Physical Exam 2 Narrative: GENERAL: Patient is alert, awake and oriented x3. [] NECK: No jugular vein distension. [] HEENT: No cyanosis. No icterus. No pallor. [] HEART: Regular S1 and S2. No murmur, rub or gallop. [] LUNGS: Clear to auscultate bilaterally. [] CENTRAL NERVOUS SYSTEM: Grossly nonfocal. [] EXTREMITIES: Lower extremities with 1+ edema bilaterally. Data 11/07/23 14:43 11/08/23 04:34 A&P Assessment and plan (1) Chest pain: (2) Dyspnea on exertion: (3) Hypertension: Qualifiers: Hypertension type: essential hypertension Qualified Code(s): I10 - Essential (primary) hypertension (4) Bradycardia: Plan Patient has been having chest pain symptoms since yesterday that are concerning for unstable angina. Will proceed with coronary angiogram with possible PCI. Risk and benefit of the procedure been discussed. She is bradycardic. However has sinus bradycardia going down at times even into 30s as well. Continue tele monitoring. NPO past midnight. Order echocardiogam Continue aspirin. Thank you for involving us with care of this patient. We will continue to follow. Please call with questions. Consult Attestations 2 Medical Necessity Statement: Care expected to cross 2 midnights. Coding Level of Care Code Acute Code for [facility] Fwd Diagnoses Chest pain R07.9 Dyspnea on exertion R06.09 Essential hypertension I10 Hypertension type: essential hypertension Bradycardia R00.1
--- NOTE | 2023-11-07 20:24 | ECG_ITS ---
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 Measurements Intervals [place] Rate: 47 P: 57 NM: 173 QRS: 1 QRSD: 100 T: 29 QT: 464 QTc: 413 Interpretive Statements SINUS BRADYCARDIA LOW QRS VOLTAGE IN PRECORDIAL LEADS [QRS DEFLECTION < 1.0 mV IN CHEST LEADS] Compared to ECG 11/07/2023 16:23:43 No significant changes Electronically Signed On 11-08-2023 7:21:06 CDT by Javier Cevallos M.D. [id number]
[2023-11-07] MEDS: aspirin 325 mg Tablet PO (21:00)
[2023-11-07] MEDS: enoxaparin 40 mg/0.4 mL Syringe SUBCUT (21:00)
[2023-11-07 21:13] LABS: Estmated Average Glucose 123; Hemoglobin A1C 5.9 % (4.0-6.0)
[2023-11-07 21:30] LABS: Adenovirus Not Detected (NOT DETECT); Chlamydia Pneumoniae Not Detected (NOT DETECT); Coronavirus 229E,HKU1,NL63,OC4 Not Detected (NOT DETECT); Human Metapneumovirus Not Detected (NOT DETECT); Human Rhinovirus/Enterovirus Not Detected (NOT DETECT); Influenza A Not Detected (NOT DETECT); Influenza A H1 Not Detected (NOT DETECT); Influenza A H1-2009 Not Detected (NOT DETECT); Influenza A H3 Not Detected (NOT DETECT); Influenza B Not Detected (NOT DETECT); Mycoplasma Pneumoniae Not Detected (NOT DETECT); Parainfluenza Virus Type 1 Not Detected (NOT DETECT); Parainfluenza Virus Type 2 Not Detected (NOT DETECT); Parainfluenza Virus Type 3 Not Detected (NOT DETECT); Parainfluenza Virus Type 4 Not Detected (NOT DETECT); Respiratory Syncytial Virus A Not Detected (NOT DETECT); Respiratory Syncytial Virus B Not Detected (NOT DETECT); SARS-COV-2 Not Detected (NOT DETECT)
[2023-11-07 22:06] LABS: Troponin 5 6HR Delta 2.30001 ng/L (0-12)
[2023-11-08] VITALS (103 sets, daily range): BP systolic 104–158; BP diastolic 59–92; PULSE 44–79; RESP 12–26; TEMP 36.4–37.2; O2SAT 93–100
[2023-11-08 05:02] LABS: Alanine Aminotransferase 34 U/L (0-33); Albumin Level 3.7 g/dL (3.5-5.2); Alkaline Phosphatase 67 U/L (35-105); Anion Gap 17.8 (5-19); Aspartate Amino Transferase 34 U/L (0-32); Blood Urea Nitrogen 10 mg/dL (6-20); Calcium 8.9 mg/dL (8.5-10.5); Carbon Dioxide 19 mmol/L (22-29); Chloride 109 mmol/L (98-107); Creatinine Clr Calc Pharmacy 156.6594; Globulin 2.9 g/dL (1.3-4.6); Glomerular Filtration Rate 130.1 mL/min (90-130); Glucose 101 mg/dL (65-115); Osmolality Calculated 293 mOsm/kg (285-295); Potassium 3.8 mmol/L (3.5-5.1); Sodium 142 mmol/L (136-145); Total Bilirubin 0.5 mg/dL (0.15-1.2); Total Protein 6.6 g/dL (6.6-8.7)
--- NOTE | 2023-11-08 06:47 | XACV_ITS ---
Exam Room: [facility] Ht: 163 cm Wt: 104 kg BSA: 2.22 m2 Gender: Female : 1970 Any Known Allergies: No known allergies Exam Priority: Routine Procedure(s): Procedure Description: Diagnostic procedure Procedure Description: PCI procedure Procedure Description: Drug Eluting Coronary Stent Procedure Description: PTCA Procedure Description: Miscellaneous Procedure Description: ACT Procedure Description: Coronary Angiography Diagnostic Cath Status: Urgent Diagnostic Findings * INDICATION: Unstable angina. * 2nd Diagonal artery is a medium sized vessel with a critical 95% stenosis, CASTRO: 3 flow. This is culprit vessel for patient's unstable angina. * No signficant disease noted in left main, LAD, Left circumflex artery or RCA. * Coronary angiography shows right dominance. PCI Status: Urgent PCI Indication: Other Interventional Findings * PROCEDURE DETAIL: We engaged left main artery with XB 3.0 guide catheter. IV heparin was administered to maintain anticoagulation. 0.014 run-through guidewire was used to cross the stenosis and was placed in distal diagonal artery. IV heparin was administered to maintain anticoagulation. We predilated the stenosis with 2.25 x 12 mm semicompliant balloon. This was followed by placement of 2.25 x 12 mm resolute Maria Alejandra drug-eluting stent. At this time final angiogram was performed that showed excellent stent expansion, CASTRO-3 flow and no residual stenosis. Guidewire and guide catheter were removed. Patient left the ammunition assembly i laborer in a stable condition. . * 2nd Diagonal: 95% stenosis treated with a AB TREK 2.25X12 RX BALLOON, and MDT R MARIA ALEJANDRA 2.25X12 PANCHO. 0% residual stenosis, CASTRO: 3 flow. Conclusions 1. Critical diagonal artery stenosis s/p successful revascularization with 1 stent. 2. 2nd Diagonal was treated with a Balloon, and Drug Eluting Stent. Recommendations * Dual antiplatelet therapy with aspirin and plavix for atleast 1 year. * High intensity statin therapy. * Outpatient cardiology follow up in 2 weeks. Interventional RX Recommendation: PCI w/o planned CABG Diagnostic RX Recommendation: PCI w/o planned CABG Anticoagulation: Heparin Pressures Phase:Rest AO : 112 / 51 ( 86 ) @ 9:37:00 AM 109 / 105 ( 85 ) @ 9:48:00 AM Clinical Evaluation EBL: 5mL-10mL Procedural Details Procedure Consent Obtained. Admit Source: In Patient. Pre-Procedure Time Out. Identified patient by full name and date of as verbalized by the patient/guarantor. Does the consent match the physician's order: Yes. Accurate & Complete Informed Consent: Yes. Inpatient/Outpatient History & Physical on Chart: Yes. If H&P is completed, is and addenduem needed: No; If yes, is the addendum complete: N/A. Visualize and Verify Site with Patient/Guarantor: N/A. Relevant Radiology Images available: N/A. The risks, benefits, and alternatives of sedation and/or procedure were discussed by physician. The patient agrees to continue. Procedure started. HA Clinical Fraility Score: 3: Managing Well. Hotel Room Attendant Indications: Worsening Angina. Chest Pain Symptom Assessment: Typical Angina Symptoms. Correct patient, site and procedure confirmed by cath team. Current diagnosis: Chest Pain. PERRLA. Strong, equal hand it network architect bilaterally. Lungs clear x 5 lobes. IV Site on Arrival: 20 gauge in the left anticubital . Catheter out of the vessel. IV removed. A 20 gauge IV was started in the right anticubital using aseptic technique. IV Fluids: 0.9% NaCl at 75ml/hr. 0 mL infused prior to ammunition assembly i laborer. Pre Procedural Pulses: bilateral dorsalis pedis was 3+. Pre Procedural Pulses: bilateral posterior tibial was 3+. Pre Procedural Pulses: bilateral radial was 3+. Oxygen started at 2liters/min via nasal canula. right radial was prepped with chloroprep then draped in the usual sterile fashion. right groin was prepped with chloroprep then draped in the usual sterile fashion. Physician notified. Baseline sample Acquired. HR: 52 BPM. Physician arrived. Physician scrubbed in. Immediate Pre-Procedure Time Out. Correct Patient: Yes; Correct Procedure: Yes; Correct Site: Yes; Correct Patient Position: Yes; Correct Supplies: Yes; Dried Flammable Prep: Yes; Blood Products Available: No;. Lidocaine 1% infiltrated to the right radial. Arterial access obtained. A 5 peruvian TIG catheter in over wire. Multiple views taken of left coronary artery. Catheter redirected to the RCA. Multiple views taken of right coronary artery. Catheter removed over the exchange wire. 6 peruvian XB 3 guide catheter was inserted over the wire. Add inventory: Co-gliding pilot instructor, Endoflator. Runthrough guidewire was advanced through the guide catheter to lesion in the diaganol. Guidewire advanced across lesion. Balloon inserted to lesion in the diaganol. Inflation number : 1 A AB TREK 2.25X12 RX BALLOON was prepped and advanced across the 2nd Diag , then inflated to 8 DULCE for 0:16 seconds. Balloon out. Results checked. Stent inserted to lesion in the diaganol. Inflation Number : 2 A MDWatson R MARIA ALEJANDRA 2.25X12 PANCHO -Lot Number#[id number] EXP 06-25-2026_ was prepped and advanced across the 2nd Diag. The stent was deployed at 12 DULCE for 0:16 seconds. Stent balloon out over wire. Results checked. ACT drawn. Results out of range high results. Therapeutic limits - pre-heparin administration 90-150 seconds and monitoring heparin during a vascular procedure >250 seconds. Results checked. Runthrough wire out. Results checked. Guide catheter out. Wire out. ACT drawn. Results 321 seconds. Therapeutic limits - pre-heparin administration 90-150 seconds and monitoring heparin during a vascular procedure >250 seconds. A TR Band was successful obtaining hemostatsis at the Right Radial artery insertion site. Post Procedure: Pulses reassessed and unchanged. PERRLA. Strong, equal hand it network architect bilaterally. No VTE prophylaxis required. Medication's Wasted: Lidocaine 1% = 18 mL. Medication's Wasted: Nitro = 49.4 mg. Medication's Wasted: Heparin = 1000 unit. Physician scrubbed out. 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 Complications: None. Estimated blood loss: 5mL-10mL. Responsiveness - Normal response to verbal stimuli; alert and oriented, PERRLA. Airway - Unaffected, no intervention required; spontaneous ventilation. Circulation: W/N/L, pulses unchanged. Nausea/Vomiting: No. Medication's Wasted: Other = 1mg Versed, 50mcg Fentanyl mL. Procedure completed. Patient transferred by bed to ICU. Vital chart was stopped. Access Site Site: Right Radial artery Sheath Size: 6 Fr Hemostasis Method: TR Band Hemostasis Success: Successful Procedure Medications Start: 8:17 AM Stop: 8:17 AM Medication: Versed Amount: 1 mg Route: I.V. Start: 8:17 AM Stop: 8:17 AM Medication: Fentanyl Amount: 50 mcg Start: 8:27 AM Stop: 8:27 AM Medication: Nitrogylcerin Amount: 200 mcg Route: I.A. Start: 8:28 AM Stop: 8:28 AM Medication: Heparin Amount: 5000 units Route: I.V. Start: 8:34 AM Stop: 8:34 AM Medication: Nitrogylcerin Amount: 200 mcg Route: I.A. Start: 8:41 AM Stop: 8:41 AM Medication: Heparin Amount: 5000 units Route: I.V. Start: 8:47 AM Stop: 8:47 AM Medication: Nitrogylcerin Amount: 200 mcg Route: I.C. Start: 8:54 AM Stop: 8:54 AM Medication: Aspirin Amount: 81 mg Route: P.O. Start: 8:55 AM Stop: 8:55 AM Medication: Plavix Amount: 600 mg Route: P.O. I, the attending physician, have reviewed and verified all procedure medications. Yes, all medications given per verbal order History/Risk Factors Hypertension: Yes Dyslipidemia: No Peripheral Arterial Disease (PAD): No Myocardial Infarction (NM): No Obesity: Yes Renal Disease: No Tobacco Use: Former Prior Interventions PCI: No CABG: No Valve Surgery: No Report Signatures Finalized by Javier Cevallos MD on 11/08/2023 03:54 PM
--- NOTE | 2023-11-08 07:50 | PC.NURSE ---
Patient currently receiving Echo. Tenant Relations Coordinator to take for heart cath this am.
--- NOTE | 2023-11-08 08:04 | PC.NURSE ---
Patient taken to garage laborer via wheelchair. Patient will return to ICU 7 upon comletion
--- NOTE | 2023-11-08 08:13 | W.PM.OPSUD ---
Surgery/Procedure H&P Update DATE OF PROCEDURE: November 08, 2023 DATE H&P PERFORMED: 11/07/23 H&P UPDATE INFORMATION: I have reviewed H&P completed within last 30 days, I have examined patient prior to procedure and No changes to prior documentation PREOP DIAGNOSIS: Worsening angina/ unstable angina PRIMARY INDICATION FOR PROCEDURE: Worsening angina/ unstable angina PLANNED PROCEDURE: Left heart cath with possible percutaneous coronary intervention PATIENT REASSESSED PRIOR TO SEDATION, WITH NO CHANGE NOTED: Yes PHYSICAL EXAM: alert, oriented x 3, clear to auscultation bilaterally and regular rate & rhythm AIRWAY EVAL/ANESTHESIA PLAN: normal airway, ASA III, Local Anesthesia, Risks, benefits & alternatives of sedation and/or procedure discussed and Patient agrees to continue as planned ADDITIONAL INFORMATION: Moderate sedation
--- NOTE | 2023-11-08 08:14 | P.PN_ITS ---
Subjective 2 Subjective: Coronary angiogram demonstrated critical 95% diagonal artery stenosis. Underwent successful revascularization with 1 stent. Vitals/I&O/Wt Last Vital Signs Temp 98.0 F 11/08/23 07:11 Pulse 56 L 11/08/23 07:11 Resp 16 11/08/23 07:11 BP 114/75 11/08/23 07:11 Pulse Ox 94 11/08/23 07:11 O2 Del Method Room Air 11/08/23 07:11 Weight last 48 hrs Weight 230 lb 4.8 oz Weight 230 lb Weight 230 lb Physical Exam 2 Narrative: GENERAL: Patient is alert, awake and oriented x3. [] NECK: No jugular vein distension. [] HEENT: No cyanosis. No icterus. No pallor. [] HEART: Regular S1 and S2. No murmur, rub or gallop. [] LUNGS: Clear to auscultate bilaterally. [] CENTRAL NERVOUS SYSTEM: Grossly nonfocal. [] EXTREMITIES: Lower extremities with 1+ edema bilaterally. Data 11/07/23 14:43 11/08/23 04:34 A&P Assessment and plan (1) Chest pain: (2) Dyspnea on exertion: (3) Hypertension: Qualifiers: Hypertension type: essential hypertension Qualified Code(s): I10 - Essential (primary) hypertension (4) Bradycardia: Plan Patient had PCI of diagonal artery. Continue dual antiplatelet therapy with aspirin and Plavix. Echo shows normal LV systolic function. Thank you for involving us with care of this patient. We will continue to follow. Please call with questions. Attestations 2 Medical Necessity Statement*: Care expected to cross 2 midnights. Coding Level of Care Code Acute Code for [facility] Diagnoses Chest pain R07.9 Dyspnea on exertion R06.09 Essential hypertension I10 Hypertension type: essential hypertension Bradycardia R00.1
[2023-11-08] MEDS: pantoprazole DR 40 mg Tablet PO (10:10)
[2023-11-08] MEDS: sodium chloride 0.9% 1,000 ML 100 ML IV ×2 (10:11→19:26)
[2023-11-08] MEDS: acetaminophen 325 mg Tablet 650 MG PO (11:29)
--- NOTE | 2023-11-08 11:50 | P.PN_ITS ---
Subjective 2 Subjective: She is doing well after angiography. Denies any chest pain or pressure. No issues with access site. Heart rate with some improvement compared to last night. Vitals/I&O/Wt Last Vital Signs Temp 98.6 F 11/08/23 09:45 Pulse 56 L 11/08/23 11:32 Resp 14 11/08/23 11:32 BP 128/69 11/08/23 09:45 Pulse Ox 98 11/08/23 11:32 O2 Del Method Room Air 11/08/23 11:32 Weight last 48 hrs Weight 104.462 kg Weight 104.326 kg Weight 104.326 kg Physical Exam 2 Narrative: Accompanied by her . Const: COMMON NORMALS: patient oriented x3 and alert GENERAL APPEARANCE: c ooperative NUTRITIONAL APPEARANCE: obese ORIENTATION/CONSCIOUSNESS: Yes awake HENMT: COMMON NORMALS: oropharynx normal Neck/C-Spine: COMMON NORMALS: no JVD Resp: COMMON NORMALS: normal respiratory effort and clear to auscultation bilaterally AUSCULTATION: clear to auscultation bilaterally Cardio: COMMON NORMALS: no JVD, regular rhythm, S1 normal heart sound present, S2 normal heart sound present and No murmurs present (Cardio) RATE: b radycardic RHYTHM: regular rhythm HEART SOUNDS: S1 normal heart sound present and S2 normal heart sound present GI: COMMON NORMALS: Normal to inspection, nondistended, normoactive bowel sounds present, Soft to palpation and non-tender PALPATION: Yes Soft to palpation Extremity: COMMON NORMALS: no joint enlargement and no pedal edema Neuro: COMMON NORMALS: patient oriented x3 and moves all extremities S ENSORIUM/ORIENTATION: Yes alert Skin: COMMON NORMALS: no rashes or lesions noted GENERAL SKIN EXAM: no rashes or lesions noted Data 11/07/23 14:43 11/08/23 04:34 A&P Assessment and plan (1) Bradycardia: Reviewed vitals, CMP, magnesium, TSH, echocardiogram. Troponin series. Studies without further explanation of bradycardic. Reviewed cardiology note. Given chest discomfort, cardiovascular risks, per discussion with cardiology underwent coronary angiography today, with finding of significant stenosis admission of over 2 midnights is anticipated for assessment of management of first diagonal branch, treated with a stent. She is doing well after the procedure. Apparent improvement in the heart rates, although heart rates do still stay in the 50s, intermittently going into 40s. CT of the neck due to some pain/discomfort to assess for any mass/lesion On the anterolateral left side compression carotid body for now delayed due to contrast administration and risk of KARY. Will be obtained tomorrow. Reassess renal function. She has sleep apnea, has been intolerant of CPAP. (2) Dyspnea on exertion: Reviewed echocardiogram. Without significant disease to explain dyspnea exertion. Did have a significant occlusion of first diagonal branch treated with a stent, possibly contributing to her symptoms and exacerbating bradycardia. At rest she is on room air 97%. She does get easily fatigued, lightheaded when she stands up. Gets short of breath with walking. Assess TTE. Assess orthostatics. Reviewed respiratory viral panel. (3) Chest pain: Significant CAD with severe stenosis of first diagonal branch treated with a stent. Continue post angiography care. Reassess kidney function. Nitroglycerin as needed, IV morphine. Plan Obstructive sleep apnea, has not been tolerant of wearing CPAP, Mild chronic transaminitis: Follow-up with PCP Morbid obesity, HTN, Lisinopril. Confirm home medications. GERD: Continue PPI Inflammatory arthritis, Former smoker Attestations 2 Medical Necessity Statement*: Continue hospitalization for reassessment and management after coronary angiography and angioplasty with stenting of hemodynamically significant coronary stenosis, monitoring and reassessment of symptomatic bradycardia. and High MDM includes amount and/or complexity of data reviewed/ordered [ resulted lab(s)/test(s), ordered lab(s)/test(s) and other healthcare professional discussion] and described risk of complication, morbidity or mortality of management as documented Diagnoses Bradycardia R00.1 Dyspnea on exertion R06.09 Chest pain R07.9
[2023-11-08] MEDS: lisinopril 20 mg Tablet PO (12:51)
--- NOTE | 2023-11-08 18:09 | USCV_ITS ---
Danielle Badillo Age: 53 Gender: F : 1970 Exam Date: 11/08/2023 07:31 Ordering Phys: Kevin Valenzuela MD Technologist: Peter Metcalf Exam Location: [facility] [place] Indication: severe sinus sergio BP: 116 / 72 HR: 55 Rhythm: Sinus Technical Quality: Adequate MEASUREMENTS (Male / Female) Normal Values 2D ECHO LV Diastolic Diameter PLAX 4.7 cm 4.2 - 5.9 / 3.9 - 5.3 cm IVS Diastolic Thickness 1.3 cm 0.6 - 1.0 / 0.6 - 0.9 cm IVS Systolic Thickness 1.6 cm LVPW Diastolic Thickness 1.3 cm 0.6 - 1.0 / 0.6 - 0.9 cm LVPW Systolic Thickness 2.3 cm LVOT Diameter 2.0 cm LV Ejection Fraction 2D Teich 74.0 % LV Ejection Fraction MOD 4C 53.2 % LV Ejection Fraction MOD 2C 54.5 % LV Ejection Fraction 2C AL 57.7 % LA Diameter 3.7 cm Aorta at Sinotubular Diameter 2.6 cm IVC Diameter 1.9 cm M-MODE LA Ao Ratio MM 1.3 AV Cusp Separation MM 1.6 cm DOPPLER AV Peak Velocity 132.3 cm/s LVOT Peak Velocity 100.0 cm/s AV Area Cont Eq vti 2.6 cm squared AV Area Cont Eq pk 2.4 cm squared MV Peak Velocity 107.0 cm/s MV Area PHT 6.6 cm squared Mitral E to A Ratio 1.2 TV Peak Velocity 184.0 cm/s TR Peak Velocity 219.0 cm/s TR Peak Gradient 19.2 mmHg TR Mean Velocity 174.0 cm/s TR Mean Gradient 12.9 mmHg TR Velocity Time Integral 71.1 cm PV Peak Velocity 95.0 cm/s RV Ejection Time 0.3 s FINDINGS Left Ventricle Technically limited quality echocardiogram. LV systolic function is normal with EF of 55 to 60%. No regional wall motion abnormalities are seen. Right Ventricle Normal in size and function Right Atrium Normal in size Left Atrium Normal in size Mitral Valve Structurally normal mitral valve. Trace mitral regurgitation. Aortic Valve Structurally normal aortic valve. No significant stenosis. Tricuspid Valve Insufficient TR jet to estimate RVSP Pulmonic Valve Not well visualized Pericardium Normal Aorta Normal in size IVC Appears to be normal CONCLUSIONS Technically limited quality echocardiogram because of poor ultrasonic windows LV systolic function is normal with EF of 55-60% Trace mitral regurgitation Compared to prior echocardiogram from 10/2022, no significant changes are seen. Javier Cevallos MD (Electronically Signed) Final Date: 08 November 2023 09:36 S
[2023-11-08] MEDS: enoxaparin 40 mg/0.4 mL Syringe SUBCUT (19:26)
--- NOTE | 2023-11-08 22:32 | PC.NURSE ---
Patient transferred to [facility] at 2222. Right wrist cath access site visualized with Disha CABRERA.
[2023-11-09] VITALS: BP 118/69; PULSE 59; RESP 15; TEMP 36.7; O2SAT 97
[2023-11-09 04:00] VITALS: BP 106/61; PULSE 70; RESP 19; TEMP 36.4; O2SAT 95
[2023-11-09] MEDS: acetaminophen 325 mg Tablet 650 MG PO (04:31)
[2023-11-09] MEDS: sodium chloride 0.9% 1,000 ML 100 ML IV (04:32)
[2023-11-09 05:09] LABS: Basophils % 0.6 %; Eosinophils # 0.1 10^3/uL (0.0-0.8); Eosinophils % 1.9 %; Hematocrit 41.5 % (36-47); Lymphocytes % 41.8 %; Mean Corpuscular Hemoglobin 30.6 pg (27-33); Mean Corpuscular Volume 92.8 fl (85-98); Mean Platelet Volume 10.4 fL (7.4-10.4); Monocytes # 0.4 10^3/uL (0.2-0.9); Neutrophils # 2.21 10^3/uL (1.8-7.7); Neutrophils % 46.3 %; Nucleated Red Blood Cells % 0 %; Platelet Count 136 10^3/cmm (157-399); Red Blood Count 4.47 10^6/uL (3.85-5.65); Red Cell Distribution Width 12.8 % (12.1-15.1); White Blood Count 4.78 10^3/uL (3.29-11.43)
[2023-11-09 05:30] LABS: Alanine Aminotransferase 31 U/L (0-33); Albumin Level 3.7 g/dL (3.5-5.2); Alkaline Phosphatase 65 U/L (35-105); Anion Gap 16.8 (5-19); Aspartate Amino Transferase 30 U/L (0-32); Blood Urea Nitrogen 8 mg/dL (6-20); Calcium 8.6 mg/dL (8.5-10.5); Carbon Dioxide 20 mmol/L (22-29); Chloride 112 mmol/L (98-107); Creatinine Clr Calc Pharmacy 155.3254; Globulin 2.7 g/dL (1.3-4.6); Glomerular Filtration Rate 130.1 mL/min (90-130); Glucose 105 mg/dL (65-115); Osmolality Calculated 299 mOsm/kg (285-295); Potassium 3.8 mmol/L (3.5-5.1); Sodium 145 mmol/L (136-145); Total Bilirubin 0.5 mg/dL (0.15-1.2); Total Protein 6.4 g/dL (6.6-8.7)
[2023-11-09 06:00] VITALS: PULSE 57
--- NOTE | 2023-11-09 07:00 | CTR_ITS ---
PROCEDURE INFORMATION: Exam: CT Neck With Contrast Exam date and time: 11/09/2023 9:16 AM Age: 53 years old Clinical indication: Neck pain; Additional info: L side neck pain. New severe sinus sergio. TECHNIQUE: Imaging protocol: Computed tomography of the neck with contrast. Radiation optimization: All CT scans at this facility use at least one of these dose optimization techniques: automated exposure control; mA and/or kV adjustment per patient size (includes targeted exams where dose is matched to clinical indication); or iterative reconstruction. Contrast material: OMNIPAQUE 350; Contrast volume: 80 ml; Contrast route: INTRAVENOUS (IV); COMPARISON: CT cervical spin wo con* [id number] 11/22/2018 3:02 PM RADIATION DOSE METRICS: Total DLP (mGy-cm): 350.39 FINDINGS: Slight prominence of left palatine tonsil as compared to the right, nonspecific. Please correlate with direct visual inspection. Parapharyngeal fat planes are preserved. No soft tissue abscess identified. No acute abnormality of either parotid gland or either submandibular gland is seen. Fat planes in the floor of mouth are preserved. The thyroid gland is not enlarged. No obvious acute abnormality of the orbits or paranasal sinuses. No obvious acute osseous abnormality identified. CT/CT neck w con* [id number] IMPRESSION: Equivocal enlargement of left tonsil; please correlate with clinical exam. No other evidence of acute abnormality is identified.
[2023-11-09 07:16] VITALS: BP 135/77; PULSE 78; RESP 18; TEMP 36.8; O2SAT 96
[2023-11-09] MEDS: aspirin 81 mg EC Tablet PO (07:58)
[2023-11-09] MEDS: pantoprazole DR 40 mg Tablet PO (07:58)
[2023-11-09] MEDS: clopidogrel 75 mg Tablet PO (07:59)
[2023-11-09] MEDS: lisinopril 20 mg Tablet PO (07:59)
--- NOTE | 2023-11-09 08:02 | PC.NURSE ---
Patient up to chair after shower this am. Patient is s/p LHC with PCI. Instructed patient on site care and restrictions. Patient verbalized complete understanding. Patient waiting CT for neck pain and possible discharge later today.
[2023-11-09] MEDS: iohexol 350 mg/mL 500 mL Btl (per mL) IV (09:20)
--- NOTE | 2023-11-09 10:01 | P.PN_ITS ---
Subjective 2 Subjective: Patient is doing well. No chest pain. Vitals/I&O/Wt Last Vital Signs Temp 98.3 F 11/09/23 07:16 Pulse 78 11/09/23 07:16 Resp 18 11/09/23 07:16 BP 135/77 11/09/23 07:16 Pulse Ox 96 11/09/23 07:16 O2 Del Method Room Air 11/09/23 08:00 11/08/23 11/09/23 11/09/23 22:59 06:59 14:59 Intake Total 1775 / 2175 910 / 3085 263.333 / 263.333 Output Total 1000 / 1500 Balance 775 / 675 910 / 1585 263.333 / 263.333 Weight last 48 hrs Weight 226 lb 8 oz Weight 230 lb 4.8 oz Weight 230 lb Weight 230 lb Physical Exam 2 Narrative: GENERAL: Patient is alert, awake and oriented x3. [] NECK: No jugular vein distension. [] HEENT: No cyanosis. No icterus. No pallor. [] HEART: Regular S1 and S2. No murmur, rub or gallop. [] LUNGS: Clear to auscultate bilaterally. [] CENTRAL NERVOUS SYSTEM: Grossly nonfocal. [] EXTREMITIES: Lower extremities with 1+ edema bilaterally. Data 11/09/23 04:42 11/09/23 04:42 A&P Assessment and plan (1) Chest pain: (2) Dyspnea on exertion: (3) Hypertension: Qualifiers: Hypertension type: essential hypertension Qualified Code(s): I10 - Essential (primary) hypertension (4) Bradycardia: Plan Patient had PCI of diagonal artery yesterday. She is doing well. Continue dual antiplatelet therapy. Close outpatient follow-up. Patient is stable to be discharged from cardiology standpoint. Attestations 2 Medical Necessity Statement*: Care expected to cross 2 midnights. Coding Level of Care Code Acute Code for [facility] Diagnoses Chest pain R07.9 Dyspnea on exertion R06.09 Essential hypertension I10 Hypertension type: essential hypertension Bradycardia R00.1
[2023-11-09 11:18] VITALS: BP 158/73; PULSE 46; RESP 17; TEMP 36.4; O2SAT 98
--- NOTE | 2023-11-09 12:47 | P.DS_ITS ---
Discharge Providers Date of Admission: 11/07/23 18:36 Date of Discharge: November 09, 2023 Attending Provider at Admission: Kevin Valenzuela Attending Provider at Discharge: Kevin Valenzuela Primary Care Provider: KARLOS Esquivel Diagnoses at Discharge Discharge Diagnosis (1) Bradycardia: Status: Acute (2) Dyspnea on exertion: Status: Acute (3) Chest pain: Status: Acute Reason for Visit Reason for Visit: cp Brief History: Pleasant 53-year-old lady with history of obstructive sleep apnea, has not been tolerant of wearing CPAP, morbid obesity, HTN, inflammatory arthritis, former smoker, presents due to several days of worsening symptoms including worsening fatigability with exertion, lightheadedness on standing, intermittent palpitations, intermittent squeezing chest pain with palpitations, dyspnea on exertion. No lower extremity edema or orthopnea. She states she had previously had a stress test but it has been a while. I do not see any in our system. She denies any medication changes. Is not on any enmanuel blockers. Hospital Course Hospital Course Her potassium has been okay. Magnesium was assessment was normal. TSH was checked and normal. As mentioned she is not on enmanuel blocking medications. Echocardiogram was obtained, which showed normal ejection fraction. Trace MVR. No significant changes from prior. She was assessed by cardiology and underwent assessment by coronary angiography with finding of critical stenosis of second diagonal artery which was treated with angioplasty and PANCHO. Her symptoms improved in terms of exertion tolerance, chest pain is resolved. She is feeling much better. She still has sinus bradycardia with some heart rate variability, without evidence of block. With mild discomfort in the left side of her neck she was assessed with contrast neck CT which showed equivocal enlargement of left palatine tonsil. I do not see obvious enlargement on exam, although somewhat difficult to examine. There is perhaps mild irritation. She denies any significant environmental allergic symptoms. She does have history of GERD, discussed with her to continue Protonix, avoid food and drink 4 hours prior to sleep and she may elevate head of bed. Rapid strep was obtained, and has just come back negative. She may also use salt rinses. Continue clean dentures. Did denies any odynophagia, please reassess for any signs of thrush. With history of smoking, increased risk of cancer, please follow-up for resolution of symptoms with follow-up reassessment/imaging. Consider referral to ENT in case of lack of resolution or worsening for further assessment to exclude malignancy. Please continue to optimize cardiovascular risk factors. She is instructed to continue monitoring blood pressures, please assist in control. Assist in lifestyle optimization and weight loss. Please revisit with her also regarding obstructive sleep apnea which she has been unable to treat, has not been tolerant of CPAP. Revisit regarding alternative options. She knows to limit exertion/no lifting over 2 pounds in the right hand for the next 3 days, seek medical attention in case of any difficulties with access, and otherwise to seek medical attention in case of any worsening or new concerning symptoms. Physical Exam Narrative: She is feeling much better. Ambulating in the room. Ready to go home. Accompanied by her . Const: COMMON NORMALS: patient oriented x3 and alert GENERAL APPEARANCE: cooperative ORIENTATION/CONSCIOUSNESS: Yes awake HENMT: COMMON NORMALS: oropharynx normal Neck/C-Spine: COMMON NORMALS: no JVD Resp: COMMON NORMALS: normal respiratory effort and clear to auscultation bilaterally AUSCULTATION: clear to auscultation bilaterally Cardio: COMMON NORMALS: no JVD, regular rhythm, S1 normal heart sound present, S2 normal heart sound present and No murmurs present (Cardio) RHYTHM: regular rhythm HEART SOUNDS: S1 normal heart sound present and S2 normal heart sound present GI: COMMON NORMALS: Normal to inspection, nondistended, normoactive bowel sounds present, Soft to palpation and non-tender PALPATION: Yes Soft to palpation Extremity: COMMON NORMALS: no joint enlargement and no pedal edema NARRATIVE EXTREMITY EXAM: No issues at right wrist access site, she knows to seek medical attention in case of any symptoms there. Neuro: COMMON NORMALS: patient oriented x3 and moves all extremities SENSORIUM/ORIENTATION: Yes alert Skin: COMMON NORMALS: no rashes or lesions noted GENERAL SKIN EXAM: no rashes or lesions noted Discharge Data Studies Completed and Pending Completed Studies During Hospitalization Category Date Time Status CT neck w con* [id number] Routine Cat Scan 11/09/23 07:00 Completed MANAGER UROLOGY request for service Routine Exams 11/08/23 06:47 Completed XR chest 1V portable [id number] Stat Exams 11/07/23 14:10 Completed CV. echo complete* [id number] Routine Ultrasound 11/08/23 18:09 Completed Pending at discharge Category Date Time Status Complete Blood Count w/Auto AM LABS Lab 11/10/23 04:00 Ordered Complete Blood Count w/Auto AM LABS Lab 11/11/23 04:00 Ordered Comprehensive Metabolic Panel AM LABS Lab 11/10/23 04:00 Ordered Rapid Strep A Test Routine Lab 11/09/23 12:39 Ordered Radiology Impressions Chest X-Ray 11/07/23 14:10 IMPRESSION: 1. No acute cardiopulmonary finding. Neck CT 11/09/23 07:00 IMPRESSION: Equivocal enlargement of left tonsil; please correlate with clinical exam. No other evidence of acute abnormality is identified. Laboratory Results WBC 4.78 10^3/uL (3.29-11.43) 11/09/23 04:42 RBC 4.47 10^6/uL (3.85-5.65) 11/09/23 04:42 Hgb 13.70 g/dL (11.27-16.99) 11/09/23 04:42 Hct 41.5 % (36-47) 11/09/23 04:42 MCV 92.8 fl (85-98) 11/09/23 04:42 MCH 30.6 pg (27-33) 11/09/23 04:42 MCHC 33.0 g/dL (30-55) 11/09/23 04:42 RDW 12.8 % (12.1-15.1) 11/09/23 04:42 Plt Count 136 10^3/cmm (157-399) L 11/09/23 04:42 MPV 10.4 fL (7.4-10.4) 11/09/23 04:42 Neut % (Auto) 46.3 % 11/09/23 04:42 Lymph % (Auto) 41.8 % 11/09/23 04:42 [place] % (Auto) 9.0 % 11/09/23 04:42 Eos % (Auto) 1.9 % 11/09/23 04:42 Baso % (Auto) 0.6 % 11/09/23 04:42 Neut # (Auto) 2.21 10^3/uL (1.8-7.7) 11/09/23 04:42 Lymph # (Auto) 2.0 10^3/uL (0.8-4.8) 11/09/23 04:42 [place] # (Auto) 0.4 10^3/uL (0.2-0.9) 11/09/23 04:42 Eos # (Auto) 0.1 10^3/uL (0.0-0.8) 11/09/23 04:42 Baso # (Auto) 0.0 10^3/uL (0.0-0.1) 11/09/23 04:42 Nucleated RBC % (auto) 0 % 11/09/23 04:42 Nucleated RBCs # 0.0 /100WBC 11/09/23 04:42 D-Dimer 0.46 ug/mLFEU (0-0.59) 11/07/23 14:43 Sodium 145 mmol/L (136-145) 11/09/23 04:42 Potassium 3.8 mmol/L (3.5-5.1) 11/09/23 04:42 Chloride 112 mmol/L (98-107) H 11/09/23 04:42 Carbon Dioxide 20 mmol/L (22-29) L 11/09/23 04:42 Anion Gap 16.8 (5-19) 11/09/23 04:42 BUN 8 mg/dL (6-20) 11/09/23 04:42 Creatinine 0.5 mg/dL (0.5-0.9) 11/09/23 04:42 GFR Calculation 130.1 mL/min (90-130) H 11/09/23 04:42 Glucose 105 mg/dL (65-115) 11/09/23 04:42 Estimat Average Glucose 123 11/07/23 14:43 Hemoglobin A1c 5.9 % (4.0-6.0) 11/07/23 14:43 Calculated Osmolality 299 mOsm/kg (285-295) H 11/09/23 04:42 Calcium 8.6 mg/dL (8.5-10.5) 11/09/23 04:42 Magnesium 2.0 mg/dL (1.7-2.3) 11/07/23 14:43 Total Bilirubin 0.5 mg/dL (0.15-1.2) 11/09/23 04:42 AST 30 U/L (0-32) 11/09/23 04:42 ALT 31 U/L (0-33) 11/09/23 04:42 Alkaline Phosphatase 65 U/L (35-105) 11/09/23 04:42 Troponin T Baseline < 6 ng/L (0-10) 11/07/23 14:43 Troponin T 120 Minute 6.22 ng/L (0-10) 11/07/23 16:29 Delta Troponin T 0.80469 ABS# (0-10) 11/07/23 16:29 Troponin T Hi Sens 6Hr 8.30 ng/L (0-10) 11/07/23 21:32 Troponin T Hi Sens 6Hr Delta 2.90408 ng/L (0-12) 11/07/23 21:32 Total Protein 6.4 g/dL (6.6-8.7) L 11/09/23 04:42 Albumin 3.7 g/dL (3.5-5.2) 11/09/23 04:42 Globulin 2.7 g/dL (1.3-4.6) 11/09/23 04:42 Lipase 58 U/L (13-60) 11/07/23 14:43 TSH 3.08 uIU/mL (0.27-4.20) 11/07/23 14:43 Adenovirus (PCR) Not detected (NOT DETECT) 11/07/23 18:32 C. pneumoniae DNA (PCR) Not detected (NOT DETECT) 11/07/23 18:32 Coronavirus 229E (PCR) Not detected (NOT DETECT) 11/07/23 18:32 Human Metapneumovir PCR Not detected (NOT DETECT) 11/07/23 18:32 Influenza A (H1) PCR Not detected (NOT DETECT) 11/07/23 18:32 Influ A (H1/09) PCR Not detected (NOT DETECT) 11/07/23 18:32 Influenza A (H3) PCR Not detected (NOT DETECT) 11/07/23 18:32 Influenza Type A (PCR) Not detected (NOT DETECT) 11/07/23 18:32 Influenza Type B (PCR) Not detected (NOT DETECT) 11/07/23 18:32 M. pneumoniae (PCR) Not detected (NOT DETECT) 11/07/23 18:32 Parainfluenza 1 (PCR) Not detected (NOT DETECT) 11/07/23 18:32 Parainfluenza 2 (PCR) Not detected (NOT DETECT) 11/07/23 18:32 Parainfluenza 3 (PCR) Not detected (NOT DETECT) 11/07/23 18:32 Parainfluenza 4 (PCR) Not detected (NOT DETECT) 11/07/23 18:32 RSV Type A (PCR) Not detected (NOT DETECT) 11/07/23 18:32 RSV Type B (PCR) Not detected (NOT DETECT) 11/07/23 18:32 Entero/Rhino (PCR) Not detected (NOT DETECT) 11/07/23 18:32 SARS-CoV-2 (PCR) Not detected (NOT DETECT) 11/07/23 18:32 Vitals Last Vital Signs Temp 97.6 F 11/09/23 11:18 Pulse 46 L 11/09/23 11:18 Resp 17 11/09/23 11:18 BP 158/73 11/09/23 11:18 Pulse Ox 98 11/09/23 11:18 O2 Del Method Room Air 11/09/23 11:18 Discharge Plan Discharge Patient Disposition: Home Condition: Stable Prescriptions: New pantoprazole 40 mg Tablet,Delayed Release (Dr/Ec) 40 mg PO DAILY Qty: 42 0RF clopidogrel 75 mg Tablet 75 mg PO DAILY Qty: 90 0RF atorvastatin 40 mg tablet 40 mg PO QPM Qty: 90 0RF Continued aspirin [Adult Aspirin Regimen] 81 mg tablet,delayed release (DR/EC) 81 mg PO DAILY ondansetron HCl 4 mg tablet See Rx Instructions .ROUTE .COMPLEX Qty: 30 1RF Dose Instruction: TAKE ONE TABLET BY MOUTH FOUR TIMES DAILY NEEDED FOR NAUSEA AND VOMITING Rx Instructions: TAKE ONE TABLET BY MOUTH FOUR TIMES DAILY NEEDED FOR NAUSEA AND VOMITING lisinopril 20 mg tablet See Rx Instructions .ROUTE .COMPLEX Qty: 90 0RF Dose Instruction: TAKE ONE TABLET BY MOUTH DAILY Rx Instructions: TAKE ONE TABLET BY MOUTH DAILY gabapentin 300 mg capsule See Rx Instructions .ROUTE .COMPLEX Qty: 60 0RF Dose Instruction: TAKE ONE CAPSULE BY MOUTH TWICE DAILY Rx Instructions: TAKE ONE CAPSULE BY MOUTH TWICE DAILY Discharge Orders: Discharge Order (Routine); Ordered 11/09/23 Ordered By: Kevin Valenzuela Referrals: Maria Victoria Echavarria, KARLOS [Primary Care Provider] - 4-7 days (We have notified Dr. Echavarria's clinic of the need for a follow-up appointment to be scheduled. If you have not heard from them within the next 2 business days, please call them directly. ) Yola Mercado FNP [Nurse Practitioner] - 7-10 days (We have notified Nurse Practitioner Rogelio cancino of the need for a follow-up appointment to be scheduled. If you have not heard from them within the next 2 business days, please call them directly. ) Discharge Diet: Cardiac Patient Instructions: Atorvastatin (By mouth) (Lipitor, Atorvaliq), Clopidogrel (By mouth), Coronary Artery Disease (GEN), Bradycardia (DC), Coronary Intravascular Stent Placement (GEN), Prevent Cardiovascular Disease (GEN) Activity Restrictions/Additional Instructions: Please continue aspirin and Plavix, do not discontinue medication unless directed to do so by physician due to risk of stent thrombosis or occlusion if these medications are discontinued. Please follow-up with cardiology in office and with your primary provider for reassessment of coronary disease significant enough to require a stent. Continue to optimize risk factors including continue to monitor and write down your blood pressure, maintain heart healthy low-sodium diet, discuss with your primary doctor options and continue your efforts regarding weight loss. Monitor your heart rates twice daily, write down values due to slow heart rates. Follow-up with primary provider and cardiology with regards to bradycardia. Seek medical attention in case you again develop symptoms any lightheadedness, easy tiredness, chest pain pressure or any other concerning symptoms. Follow-up with your primary provider also with regards to possibly enlarged left palatine tonsil. Discussed with your primary doctor regarding history of heartburn, continue Protonix, avoid any food or drink 4 hours before sleep. Consider elevating head of bed 30-45 degrees. Gargle with salt water. Keep dentures clean as you have been. In case of white plaque on your tongue discussed with your primary doctor consideration of treatment for possible thrush. A sample has been collected for rapid strep as well. Please follow-up with your primary doctor regarding result unless you are contacted by us sooner. With history of smoking, which increases risk of cancer, please follow-up with your primary doctor for follow-up imaging of the tonsil to exclude progressive enlargement, consider referral to ear nose throat doctor. Please revisit with your primary doctor regarding sleep apnea, intolerance of CPAP, consideration of other options of treatment, and for which weight loss will be helpful as well. Follow-up with your primary doctor regarding mild chronic elevated liver enzymes, further evaluation with consideration of fatty liver disease or other causes that may contribute to chronic liver disease and risk of cirrhosis. Discharge Attestations Time Spent in Discharge Care*: greater than 30 min Quality Metrics Clinical Quality Measures [ Acute Myocardial Infaction { Clinical Trial Participant: No; Contraindication to aspirin: None; Aspirin prescribed; Contraindication to statin: None; Statin prescribed; Contraindication to PCI: None; PCI performed;}] Coding Level of Care Code 52686 Total time (in minutes) for Discharge: 55 Diagnoses Bradycardia R00.1 Dyspnea on exertion R06.09 Chest pain R07.9
[2023-11-09 12:58] LABS: Rapid Strep A Test Negative (Negative)
[2023-11-09 13:56] VITALS: BP 158/73; PULSE 46; RESP 17; TEMP 36.4; O2SAT 98
--- NOTE | 2023-11-09 13:58 | PC.NURSE ---
Patient discharged to home. Instruction provided regarding follow-up, new medications and site care instructions. Patient verbalized complete understanding. Patient insisted on leaving ambulatory. No distress observed. No s/s of bleeding or hematoma formation observed to right wrist.
== END 2023-11-09 13:30 | disposition home or self-care (01) ==
LOC: ER 17:29 → MEDSURG 18:36 → ICU 11-08 09:22 → MEDSURG 11-08 22:24
PROVIDERS: Internal Medicine; Admitting Provider Internal Medicine; Emergency Provider Emergency Medicine; PCP Nurse Practitioner Family; Visit Provider Internal Medicine
DX: I25.10 Atherosclerotic heart disease of native coronary artery without angina pectoris (principal); R00.1 Bradycardia, unspecified; R06.09 Other forms of dyspnea; G47.33 Obstructive sleep apnea (adult) (pediatric); Z91.199 Patient's noncompliance with other medical treatment and regimen due to unspecified reason; E66.01 Morbid (severe) obesity due to excess calories; Z68.38 Body mass index [BMI] 38.0-38.9, adult; K21.9 Gastro-esophageal reflux disease without esophagitis; I10 Essential (primary) hypertension; Z87.891 Personal history of nicotine dependence
CPT/HCPCS: 36415; 70491; 71045; 80053; 83036; 83690; 83735; 84443; 84484; 85025; 85347; 85378; 87081; 87486; 87581; 87633; 87880; 93005; 93306; 93454; 96372; 96374; 99152; 99153; 99285; C1725; C1769; C1874; C1887; C1894; C9600; G0378; J1644; J1650; J2250; J3010; J3490; J7030; Q9967

== ENCOUNTER 2024-03-11 16:01 | Outpatient (CLI) | payer MEDICAID, SELFPAY ==
--- NOTE | 2024-03-11 16:11 | XRR_ITS ---
PROCEDURE INFORMATION: Exam: XR Left Shoulder Exam date and time: 03/11/2024 4:22 PM Age: 54 years old Clinical indication: Pain; Shoulder; Patient HX: Left arm numbness and PT states Dr had abnormal findings on last xray and wants f/u; Additional info: Paresthesis of left upper limb TECHNIQUE: Imaging protocol: Radiologic exam of the left shoulder. Views: 2 or more views. COMPARISON: CR XR shoulder LT min 2V* [id number] 02/16/2024 12:25 PM FINDINGS: Bones/joints: There is osteoarthritis of the AC joint. Otherwise, no acute fracture or dislocation. Soft tissues: Normal. XR/XR shoulder LT min 2V* [id number] IMPRESSION: There is osteoarthritis of the AC joint. Otherwise, no acute fracture or dislocation.
--- NOTE | 2024-03-11 16:13 | XRR_ITS ---
PROCEDURE INFORMATION: Exam: XR Cervical Spine Exam date and time: 03/11/2024 4:22 PM Age: 54 years old Clinical indication: Neck pain; Patient HX: Left arm numbness and PT states Dr had abnormal findings on last xray and wants f/u; Additional info: Paresthesia of lef upper haven TECHNIQUE: Imaging protocol: Radiologic exam of the cervical spine. Views: 2 or 3 views. COMPARISON: CR XR cervical spine 3V* [id number] 02/16/2024 12:25 PM FINDINGS: Bones/joints: No acute fracture or dislocation seen. Prominent spondylotic spurring seen anteriorly at C6-C7 level and to a lesser extent at the C5-C6 level. No loss of vertebral body heights or disc heights. Soft tissues: Unremarkable. XR/XR cervical spine 3V* [id number] IMPRESSION: Degenerative spondylotic changes without acute traumatic bony abnormalities.
== END 2024-03-11 16:02 | disposition home or self-care (01) ==
LOC: RAD 16:09
PROVIDERS: PCP Nurse Practitioner Family; Visit Provider Electrodiagnostic Medicine
DX: R20.2 Paresthesia of skin (principal); M47.892 Other spondylosis, cervical region; M77.8 Other enthesopathies, not elsewhere classified
CPT/HCPCS: 72040; 73030

== ENCOUNTER 2024-08-18 10:56 | Outpatient (CLI) | payer MEDICAID, SELFPAY ==
--- NOTE | 2024-08-18 11:02 | XR_ITS ---
WS: [id number] KUB, AP view, 08/18/2024 Clinical Data: LUQ ABDOMINAL PAIN Comparison: None. Findings: No abnormal intraabdominal masses or calcifications are seen. There is no dilatated small bowel or evidence of obstruction. There is a large amount of fecal material in the distal transverse and proximal descending colon. There are cholecystectomy clips in the right upper quadrant. There is a posterior lumbar fusion L4 and L5. XR/XR abdomen 3V [id number] Impression: Fecal material in the transverse and descending colon at the the splenic flexur e.
--- NOTE | 2024-08-18 11:21 | XR_ITS ---
WS: [id number] Chest 2 views, 08/18/2024 Clinical Data: ABDOMINAL PAIN, LEFT UPPER QUADRANT Comparison: Portable chest, 11/07/2023 Findings: No nodules, masses or effusions are seen. The heart is normal. The pulmonary vascularity is not increased. No pneumonia or pneumothorax is seen. XR/XR chest 2V* [id number] Impression: Negative chest.
== END 2024-08-18 10:57 | disposition home or self-care (01) ==
PROVIDERS: PCP Family Medicine; Visit Provider Family Medicine
DX: R10.12 Left upper quadrant pain (principal)
CPT/HCPCS: 71046; 74021